=== PATIENT | male | born 1960 | race Caucasian/White ===

== ENCOUNTER 2016-07-28 12:39 | Inpatient (IN) | payer OTHER ==
[~2016-07-28] VITALS: Ht 180.3 cm; Wt 90.0 kg
[~2016-07-28 12:39] MED LIST: ATOR80TA41 PO; BAYE325T3 PO; CLOP75 PO; ISOS60 PO; LACTATED RINGER'S 1000 ML INJ 1,000 ML IV ONE; LISI5 PO; METO25 PO; NITR.4 PO; ONDANSETRON HCL 4 MG/2 ML VIAL IV PUSH ONE; PARO40TA PO; PROPOFOL 200 MG/20 ML AMP IV ONE
[2016-07-28 12:43] VITALS: BP 177/87; PULSE 84; RESP 20; TEMP 98; O2SAT 95
[2016-07-28] MEDS ORDERED: ASPI81CH CHEW (12:57)
[2016-07-28] MEDS ORDERED: CLINDAMYCIN INJ 900 MG in SODIUM CHLORIDE 0.9% INJ 100 ML IV ONE (13:30)
[2016-07-28] MEDS ORDERED: TETANUS/DIPHTHERIA TOXOID ADULT 0.5 ML VIAL IM ONE (13:30)
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
[2016-07-28 14:05] LABS: AUTOMATED NEUTROPHIL # 9.1 TH/MM3 (1.8-7.7); BASOPHIL # 0.1 TH/MM3 (0-0.2); BASOPHIL % 0.9 % (0.0-2.0); EOSINOPHIL # 0.2 TH/MM3 (0-0.4); EOSINOPHIL % 1.6 % (0.0-4.0); HEMO FLAGS DIFF FINAL; MEAN CELL VOLUME 86.2 FL (80.0-100.0); MEAN CORPUSCULAR HEMOGLOBIN 29.5 PG (27.0-34.0); MEAN CORPUSCULAR HGB CONC 34.2 % (32.0-36.0); MONO % 9.4 % (0.0-8.0); NEUT % 72.1 % (16.0-70.0); PLATELET COUNT 191 TH/MM3 (150-450); RED BLOOD COUNT 5.46 MIL/MM3 (4.50-5.90); RED CELL DISTRIBUTION WIDTH 13.8 % (11.6-17.2); WHITE BLOOD COUNT 12.7 TH/MM3 (4.0-11.0)
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
[2016-07-28 14:20] LABS: BICARBONATE 21.4 MEQ/L (21.0-32.0); POTASSIUM 3.9 MEQ/L (3.5-5.1)
[2016-07-28] MEDS ORDERED: BUPIVACAINE HCL PF 0.5% 30 ML VIAL ONE (15:35)
[2016-07-28] MEDS ORDERED: LIDOCAINE HCL 1% 50 ML VIAL ONE (15:36)
[2016-07-28] MEDS ORDERED: BACITRACIN TOP OINT 15 GM TUBE ONE (15:36)
[2016-07-28] MEDS ORDERED: LIDOCAINE HCL 2% 50 ML VIAL ONE (15:51)
[2016-07-28] MEDS ORDERED: MORPHINE SULFATE 4 MG/ML INJ IV PUSH ONE (16:00)
[2016-07-28] MEDS ORDERED: methylPREDNISolone SOD SUCC 125 MG/2 ML VIAL ONE (16:18)
[2016-07-28] MEDS ORDERED: NEOMYCIN/POLYMYXIN 1 ML G.U. IRRIGANT IR ONE (16:56)
[2016-07-28] MEDS ORDERED: MIDAZOLAM HCL 2 MG/2 ML VIAL ONE (18:03)
[2016-07-28] MEDS ORDERED: fentaNYL CITRATE 250 MCG/5 ML AMP ONE (18:04)
--- NOTE | 2016-07-28 18:20 | PD.ORT.PN ---
Subjective Subjective Remarks pain controlled Objective Vitals Vital Signs Date Time Temp Pulse Resp B/P Pulse Ox O2 Delivery O2 Flow Rate FiO2 07/28/16 17:55 97.4 96 15 156/86 98 Simple Mask 5 07/28/16 12:43 98.0 84 20 177/87 95 Room Air I/O 07/27/16 07/27/16 07/27/16 07/28/16 07/28/16 07/28/16 07:00 15:00 23:00 07:00 15:00 23:00 Intake Total 1000 ml Output Total 5 ml Balance 995 ml Intake Other 1000 ml Output Estimated Blood Loss 5 ml Result Diagram: 07/28/16 1350 07/28/16 1350 Imaging Last 24 hours Impressions Hand X-Ray 07/28/16 0000 Signed Impressions: Service Date/Time: Thursday, July 28, 2016 13:43 - CONCLUSION: No acute disease. Julio Rodrigues MD Objective Remarks dressing in place, <2 sec capillary refill, sitlt m/u/r, able to wiggle fingers Assessment & Plan Assessment and Plan POD0 s/p I&D right middle finger flexor tendon sheath -Elevate hand, ROM fingers -Follow cultures, Ab per ID -follow in clinic this week -mild amount of purulence in flexor tendon sheath Lata Franklin MD Jul 28, 2016 18:20
[2016-07-28] MEDS ORDERED: DO NOT ADM ANY ANTICOAGULANT DRUGS XX PRN (18:45)
[2016-07-28 20:00] VITALS: BP 136/85; PULSE 95; RESP 17; TEMP 96.2; O2SAT 95
[2016-07-28] MEDS ORDERED: ACETAMINOPHEN/HYDROcodone 325 MG/7.5 MG TAB PO PRN (20:00)
[2016-07-28] MEDS ORDERED: Vancomycin Consult Pharmacy 1 EA OTHER SCH (20:00)
[2016-07-28] MEDS ORDERED: MORPHINE SULFATE 4 MG/ML INJ IV PUSH PRN (20:00)
--- NOTE | 2016-07-28 20:07 | HHI.HP ---
[facility] Primary Care Physician Admission Diagnosis right hand infection Diagnoses: Travel History International Travel<30 Days: No Contact w/Intl Traveler <30 Da: No Traveled to Known Affected Are: No Past Family Social History Allergies: Coded Allergies: No Known Allergies (Verified , 07/28/16) Physical Exam Vital Signs Vital Signs Date Time Temp Pulse Resp B/P Pulse Ox O2 Delivery O2 Flow Rate FiO2 07/28/16 18:15 92 14 152/83 97 Room Air 07/28/16 18:00 95 16 148/82 96 Room Air 07/28/16 17:55 97.4 96 15 156/86 98 Simple Mask 5 07/28/16 12:43 98.0 84 20 177/87 95 Room Air Physical Exam GENERAL: This is a well-nourished, well-developed patient, in no apparent distress. SKIN: No rashes, ecchymoses or lesions. Cool and dry. HEAD: Atraumatic. Normocephalic. No temporal or scalp tenderness. EYES: Pupils equal round and reactive. Extraocular motions intact. No scleral icterus. No injection or drainage. ENT: Nose without bleeding, purulent drainage or septal hematoma. Throat without erythema, tonsillar hypertrophy or exudate. Uvula midline. Airway patent. NECK: Trachea midline. No JVD or lymphadenopathy. Supple, nontender, no meningeal signs. CARDIOVASCULAR: Regular rate and rhythm without murmurs, gallops, or rubs. RESPIRATORY: Clear to auscultation. Breath sounds equal bilaterally. No wheezes , rales, or rhonchi. GASTROINTESTINAL: Abdomen soft, non-tender, nondistended. No hepato-splenomegaly , or palpable masses. No guarding. MUSCULOSKELETAL: Extremities without clubbing, cyanosis, or edema. No joint tenderness, effusion, or edema noted. No calf tenderness. Negative Homans sign bilaterally. NEUROLOGICAL: Awake and alert. Cranial nerves II through XII intact. Motor and sensory grossly within normal limits. Five out of 5 muscle strength in all muscle groups. Normal speech. Laboratory Laboratory Tests Test 07/28/16 13:50 White Blood Count 12.7 Red Blood Count 5.46 Hemoglobin 16.1 Hematocrit 47.0 Mean Corpuscular Volume 86.2 Mean Corpuscular Hemoglobin 29.5 Mean Corpuscular Hemoglobin 34.2 Concent Red Cell Distribution Width 13.8 Platelet Count 191 Mean Platelet Volume 9.7 Neutrophils (%) (Auto) 72.1 Lymphocytes (%) (Auto) 16.0 Monocytes (%) (Auto) 9.4 Eosinophils (%) (Auto) 1.6 Basophils (%) (Auto) 0.9 Neutrophils # (Auto) 9.1 Lymphocytes # (Auto) 2.0 Monocytes # (Auto) 1.2 Eosinophils # (Auto) 0.2 Basophils # (Auto) 0.1 CBC Comment DIFF FINAL Differential Comment Sodium Level 137 Potassium Level 3.9 Chloride Level 104 Carbon Dioxide Level 21.4 Anion Gap 12 Blood Urea Nitrogen 16 Creatinine 0.96 Estimat Glomerular Filtration 81 Rate Random Glucose 130 Calcium Level 8.6 Date/Time Procedure Status Source Growth 07/28/16 16:59 Gram Stain Received Abscess Finger Pending 07/28/16 16:59 Wound Culture Received Abscess Finger Pending 07/28/16 16:59 Fungal Smear Received Abscess Finger Pending 07/28/16 16:59 Fungal Culture Received Abscess Finger Pending 07/28/16 16:59 Acid Fast Stain Received Abscess Finger Pending 07/28/16 16:59 Mycobacterial Culture Received Abscess Finger Pending 07/28/16 13:50 Aerobic Blood Culture Received Blood Peripheral Pending 07/28/16 13:50 Anaerobic Blood Culture Received Blood Peripheral Pending Result Diagram: 07/28/16 1350 07/28/16 1350 Heidi Jang DO Jul 28, 2016 8:07 pm
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
[2016-07-28] MEDS ORDERED: PILL SPLITTER OTHER PRN (20:45)
[2016-07-28] MEDS ORDERED: VANCOMYCIN INJ 1,250 MG in SODIUM CHLOR 0.9% 250 ML INJ 250 ML IV ONE (21:00)
[2016-07-28] MEDS: ATORVASTATIN 80 MG TAB PO SCH (21:53)
[2016-07-28] MEDS: LISINOPRIL 5 MG TAB PO SCH (21:53)
[2016-07-28] MEDS: CIPROFLOXACIN 500 MG TAB PO SCH (21:53)
[2016-07-28] MEDS: METOPROLOL TARTRATE 25 MG TAB PO SCH (21:54)
[2016-07-28] MEDS: ACETAMINOPHEN 325 MG TAB PO PRN (22:12)
[2016-07-28 22:23] VITALS: O2SAT 95
[2016-07-29] VITALS (7 sets, daily range): BP systolic 101–141; BP diastolic 57–75; PULSE 64–86; RESP 16–18; TEMP 96.8–98.5; O2SAT 93–97
[2016-07-29] MEDS: ISOSORBIDE MONONITRATE 60 MG TAB PO SCH (05:36)
[2016-07-29] MEDS ORDERED: PLAV75TA29 PO (07:15)
[2016-07-29] MEDS ORDERED: PAXI40TA PO (07:15)
[2016-07-29] MEDS ORDERED: METO25TA3 PO (07:15)
[2016-07-29] MEDS ORDERED: LISI-519 PO (07:15)
[2016-07-29] MEDS ORDERED: ISOS60TA PO (07:15)
[2016-07-29] MEDS ORDERED: NITR1SUB3 SL (07:15)
[2016-07-29] MEDS ORDERED: ATOR1TAB18 PO (07:15)
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
[2016-07-29] MEDS: VANCOMYCIN INJ 1,250 MG in SODIUM CHLOR 0.9% 250 ML INJ 250 ML IV SCH ×2 (08:39→20:10)
[2016-07-29] MEDS: ASPIRIN EC 325 MG TABEC PO SCH (08:39)
[2016-07-29] MEDS: CIPROFLOXACIN 500 MG TAB PO SCH ×2 (08:39→20:10)
[2016-07-29] MEDS: METOPROLOL TARTRATE 25 MG TAB PO SCH ×2 (08:39→20:10)
[2016-07-29] MEDS: CLOPIDOGREL 75 MG TAB PO SCH (08:39)
[2016-07-29] MEDS: LISINOPRIL 5 MG TAB PO SCH ×2 (08:39→20:10)
[2016-07-29] MEDS ORDERED: INFLUENZA VIRUS VACCINE (QUADRIVALENT) 0.5 ML SYR IM ONE (09:00)
[2016-07-29] MEDS ORDERED: PNEUMOCOCCAL POLYVALENT INJ 25 MCG/0.5 ML SYR IM ONE (09:00)
--- NOTE | 2016-07-29 13:47 | PD.CONS ---
History of Present Illness Service Infectious disease Consult Requested By Dr. Connor Franklin Reason for Consult Evaluate patient with flexor tenosynovitis Primary Care Physician No Primary Care Physician Diagnoses: History of Present Illness Patient seen and examined. Records reviewed. Patient is a 56-year-old male admitted to the hospital for evaluation swelling, redness, and pain R hand. 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 The following day, he felt some numbness on his right hand, but he did not see any redness or swelling. On the day of admission, he started having pain, and redness on his hand. It progressively worsened and went up his wrist area, so he presented to the hospital for further evaluation and treatment. He felt feverish but he did not take his temperature. About a week prior to admission he has had problem with some sore throat, and some congestion as well as coughing. He was bringing up some yellowish phlegm, and symptoms are improving. He did not have any shortness of breath or any chest pain. There was no fever or chills associated with it. His respiratory symptoms are currently improving since his been in the hospital. Patient denies any GI or any urinary complaints. Since admission he has not been febrile. His initial WBC is 12,000. Patient was seen by hand surgery, and had debridement yesterday. Cultures are still pending. Hand surgery has requested infectious disease consultation for further evaluation and treatment. Review of Systems Constitutional: COMPLAINS OF: Fever, Chills, DENIES: Night Sweats Eyes: DENIES: Eye pain Ears, nose, mouth, throat: COMPLAINS OF: Throat pain, DENIES: Nasal discharge , Oral lesions, Toothache Respiratory: COMPLAINS OF: Cough, Sputum production, DENIES: Hemoptysis, Shortness of breath Cardiovascular: DENIES: Chest pain, Palpitations, Syncope Gastrointestinal: DENIES: Abdominal pain, Diarrhea, Nausea, Vomiting Genitourinary: DENIES: Hematuria, Dysuria Musculoskeletal: COMPLAINS OF: Joint pain, Joint Swelling Integumentary: DENIES: Rash Hematologic/lymphatic: DENIES: Lymphadenopathy Immunologic/allergic: DENIES: Urticaria Neurologic: DENIES: Headache Psychiatric: DENIES: Anxiety Past Family Social History Allergies: Coded Allergies: No Known Allergies (Verified , 07/28/16) Past Medical History CAD s/p stent placement. Hypertension Hyperlipidemia Past Surgical History Stent placement for CAD Active Ordered Medications Tylenol [place] Aspirin Lipitor Cipro Plavix Imdur Prinivil Lopressor Morphine Vancomycin Social History Smokes 10 cig a day. Drinks 4 beers per week. No illicit drug use Physical Exam Vital Signs Vital Signs Date Time Temp Pulse Resp B/P Pulse Ox O2 Delivery O2 Flow Rate FiO2 07/29/16 12:00 97.2 73 17 101/57 96 07/29/16 08:50 96 21 07/29/16 08:00 96.8 67 18 116/66 93 07/29/16 04:00 97.3 64 17 122/62 94 07/29/16 00:00 97.9 75 17 141/75 94 07/28/16 22:23 95 21 07/28/16 20:00 96.2 95 17 136/85 95 07/28/16 18:15 92 14 152/83 97 Room Air 07/28/16 18:00 95 16 148/82 96 Room Air 07/28/16 17:55 97.4 96 15 156/86 98 Simple Mask 5 Physical Exam GENERAL: This is a well-nourished, well-developed male, awake and alert, in no apparent distress. SKIN: Warm and dry, no generalized rash or ecchymosis. HEAD: Atraumatic. Normocephalic. No temporal or scalp tenderness. EYES: Ong conjunctivae, no petechia or hemorrhage. Pupils equal round and reactive. Extraocular motions intact. No scleral icterus. No injection or drainage. ENT: Nose without bleeding, or purulent drainage. Moist oral mucosa, poor dentition. Throat without erythema, or exudate. Uvula midline. Airway patent. NECK: Trachea midline. No JVD or lymphadenopathy. Supple, nontender, no meningeal signs. CARDIOVASCULAR: Regular rate and rhythm without murmurs, gallops, or rubs. RESPIRATORY: Clear to auscultation. Breath sounds equal bilaterally. No wheezes , rales, or rhonchi. GASTROINTESTINAL: Abdomen soft, globular, non-tender, nondistended. No hepato- splenomegaly, or palpable masses. No guarding. MUSCULOSKELETAL: Extremities without clubbing, cyanosis, or edema in BLE. Has intact dry dressing to his R hand, moving all fingers well, no lymphangitis seen in the forearm or upper arm. No calf tenderness. Negative Homans sign bilaterally. NEUROLOGICAL: Awake and alert. Cranial nerves II through XII intact. Motor and sensory grossly within normal limits. Five out of 5 muscle strength in all muscle groups. Normal speech. PSYCH: Normal affect, calm and cooperative. LINE: PIV with no evidence of infection Laboratory Laboratory Tests Test 07/28/16 13:50 White Blood Count 12.7 Red Blood Count 5.46 Hemoglobin 16.1 Hematocrit 47.0 Mean Corpuscular Volume 86.2 Mean Corpuscular Hemoglobin 29.5 Mean Corpuscular Hemoglobin 34.2 Concent Red Cell Distribution Width 13.8 Platelet Count 191 Mean Platelet Volume 9.7 Neutrophils (%) (Auto) 72.1 Lymphocytes (%) (Auto) 16.0 Monocytes (%) (Auto) 9.4 Eosinophils (%) (Auto) 1.6 Basophils (%) (Auto) 0.9 Neutrophils # (Auto) 9.1 Lymphocytes # (Auto) 2.0 Monocytes # (Auto) 1.2 Eosinophils # (Auto) 0.2 Basophils # (Auto) 0.1 CBC Comment DIFF FINAL Differential Comment Sodium Level 137 Potassium Level 3.9 Chloride Level 104 Carbon Dioxide Level 21.4 Anion Gap 12 Blood Urea Nitrogen 16 Creatinine 0.96 Estimat Glomerular Filtration 81 Rate Random Glucose 130 Calcium Level 8.6 Date/Time Procedure Status Source Growth 07/28/16 16:59 Gram Stain - Final Resulted Abscess Finger 07/28/16 16:59 Wound Culture - Preliminary Resulted Abscess Finger 07/28/16 16:59 Fungal Smear - Final Resulted Abscess Finger NO FUNGAL ELEMENTS SEEN. 07/28/16 16:59 Fungal Culture Resulted Abscess Finger Pending 07/28/16 16:59 Acid Fast Stain Received Abscess Finger Pending 07/28/16 16:59 Mycobacterial Culture Received Abscess Finger Pending 07/28/16 13:50 Aerobic Blood Culture - Preliminary Resulted Blood Peripheral NO GROWTH IN 1 DAY 07/28/16 13:50 Anaerobic Blood Culture - Preliminary Resulted Blood Peripheral NO GROWTH IN 1 DAY Result Diagram: 07/28/16 1350 07/28/16 1350 Imaging RADIOLOGY STUDIES/FILMS REVIEWED Hand X-Ray 07/28/16 0000 Signed Impressions: Service Date/Time: Thursday, July 28, 2016 13:43 - CONCLUSION: No acute disease. Julio Rodrigues MD Assessment and Plan Assessment and Plan IMPRESSION Infection R hand, with flexor tenosynovitis, S/P debridement Bronchitis Smoker RECOMMENDATION Continue IV vancomycin Continue Cipro Follow cultures and adjust antibiotics accordingly Monitor clinically I will determine choice and course of antibiotics once cultures are available Thank you for this consultation Discussed Condition With Explained plan to the patient and answered all his questions Stacy Dillard MD Jul 29, 2016 13:47
--- NOTE | 2016-07-29 14:16 | MP ---
cc: LATA FRANKLIN DATE OF SURGERY: 07/28/2016 PREOPERATIVE DIAGNOSIS Infected flexor tendon sheath, right middle finger. POSTOPERATIVE DIAGNOSIS Infected flexor tendon sheath, right middle finger. PROCEDURE Incision and drainage flexor tendon sheath, right middle finger. SURGEON Dr. Lata Franklin ANESTHESIA General and local. TOURNIQUET TIME 26 minutes at 250 mmHg. SPECIMEN Culture. INDICATION FOR PROCEDURE Rigoberto Lewis is a 56-year-old male with a past medical history significant for cardiac disease, who states that he accidentally stabbed himself on the volar aspect of the right middle finger with his fishing knife 2 days prior to presentation and now has significant pain and swelling over the right hand. I recommended emergent incision and drainage of the flexor tendon sheath and admission for IV antibiotics, and he elected to proceed. The risks were explained to include but not limited to wound complications, infection, stiffness, pain, paresthesias, need for additional surgeries, and he elected to proceed. DESCRIPTION OF PROCEDURE The patient was identified in the preoperative holding area. The correct extremity was marked. The patient was taken to the operating room where anesthesia was induced. The right upper extremity was prepped and draped in normal sterile fashion. Tourniquet was inflated to 250 mmHg for 26 minutes. Approximately 10 cc of 2% lidocaine without epinephrine was used to perform local anesthesia over the finger. An oblique incision was made over the level of the A1 ambrocio where the stab occurred. Upon making the incision there was a mild amount of purulence. This was sent for culture. The wound was then irrigated with 3 liters of antibiotic saline including an Angiocath up and down the flexor tendon sheath. The patient also had a small open area of the small finger which was irrigated and sutured. The wound was closed with 4-0 chromic. The patient was placed into a soft dressing and awoken from anesthesia without any complications. He is to remain admitted for IV antibiotics following the cultures, and I will see him in the office. MD PAULINE Cody/MOISES /6:15 PM /2:[address] [facility]
--- NOTE | 2016-07-29 16:30 | HHI.PR ---
Subjective Remarks Follow up for right hand infection. Patient is doing well. Denies any chest pain , SOB, fever, chills. He is having some difficulty using his hands. However, he is able to eat by himself. Remains in good spirit. Objective Vitals Vital Signs Date Time Temp Pulse Resp B/P Pulse Ox O2 Delivery O2 Flow Rate FiO2 07/29/16 12:00 97.2 73 17 101/57 96 07/29/16 08:50 96 21 07/29/16 08:00 96.8 67 18 116/66 93 07/29/16 04:00 97.3 64 17 122/62 94 07/29/16 00:00 97.9 75 17 141/75 94 07/28/16 22:23 95 21 07/28/16 20:00 96.2 95 17 136/85 95 07/28/16 18:15 92 14 152/83 97 Room Air 07/28/16 18:00 95 16 148/82 96 Room Air 07/28/16 17:55 97.4 96 15 156/86 98 Simple Mask 5 I/O 07/28/16 07/28/16 07/28/16 07/29/16 07/29/16 07/29/16 07:00 15:00 23:00 07:00 15:00 23:00 Intake Total 1240 ml 490 ml 500 ml Output Total 305 ml 700 ml 450 ml Balance 935 ml -210 ml 50 ml Intake Oral 240 ml 240 ml 500 ml IV Total 0 ml 250 ml Other 1000 ml Output Urine Total 300 ml 700 ml 450 ml Estimated Blood Loss 5 ml # Bowel Movements 0 Result Diagram: 07/28/16 1350 07/28/16 1350 Imaging Last Impressions Hand X-Ray 07/28/16 0000 Signed Impressions: Service Date/Time: Thursday, July 28, 2016 13:43 - CONCLUSION: No acute disease. Julio Rodrigues MD Objective Remarks GENERAL: AOX3, NAD. SKIN: Warm and dry. HEAD: Normocephalic. EYES: No scleral icterus. No injection or drainage. NECK: Supple, trachea midline. No JVD or lymphadenopathy. CARDIOVASCULAR: Regular rate and rhythm without murmurs, gallops, or rubs. RESPIRATORY: Breath sounds equal bilaterally. No accessory muscle use. GASTROINTESTINAL: Abdomen soft, non-tender, nondistended. MUSCULOSKELETAL: No cyanosis. Right hand s/p I&D, dressing on. BACK: Nontender without obvious deformity. No CVA tenderness. Procedures 07/28/2016 Incision and drainage flexor tendon sheath, right middle finger. A/P Problem List: (1) Sepsis ICD Code: A41.9 Status: Acute (2) Tenosynovitis of hand ICD Code: M65.9 Status: Acute (3) CAD (coronary artery disease) ICD Code: I25.10 Status: Acute (4) HTN (hypertension) ICD Code: I10 Status: Chronic Assessment and Plan Mr. Lewis is a pleasant 56 year old male with a history of CAD s/p stents who presented to the ED on 07/28/2016 due to accidental right hand injury with a knife and subsequent rapid development of erythema, pain and swelling of the right hand. Patient underwent surgical I&D on 07/28/[address] Lata Franklin. - Sepsis (Tachycardia, WBC > 12K, right hand infection). - Right hand tenosynovitis - Patient received clindamycin in the ED. - Right hand x-ray reviewed by me on 07/28/2016 - no acute disease noted on Xray. Patient's picture prior to surgery reviewed. - s/p I&D right middle finger flexor tendon sheath - Follow culture results. - Continue Vancomycin IV and Cipro 500mg PO BID. ID is following. - Follow C&S - CAD s/p stents - Hypertension - Hyperlipidemia - Continue Aspirin 325mg Qday, Imdur 60mg Qday, Plavix 75mg Qday, Lisinopril 5 mg BID, Lipitor 80mg QHS - Continue Metoprolol 12.5mg Qday. - Tobacco abuse - Alcohol abuse - Extensively counselled patient regarding his alcohol and tobacco abuse especially give his history of CAD. Full code. SCDs, Ambulation. Heidi Jang DO Jul 29, 2016 16:30
[2016-07-29] MEDS: ATORVASTATIN 80 MG TAB PO SCH (20:10)
[2016-07-30] VITALS: BP 143/55; PULSE 66; RESP 20; TEMP 98.7; O2SAT 96
[2016-07-30] MEDS: ISOSORBIDE MONONITRATE 60 MG TAB PO SCH (06:11)
[2016-07-30 08:00] VITALS: BP 119/66; PULSE 71; RESP 18; TEMP 97.4; O2SAT 98
[2016-07-30] MEDS: CLOPIDOGREL 75 MG TAB PO SCH (08:36)
[2016-07-30] MEDS: LISINOPRIL 5 MG TAB PO SCH ×2 (08:36→21:48)
[2016-07-30] MEDS: METOPROLOL TARTRATE 25 MG TAB PO SCH ×2 (08:36→21:48)
[2016-07-30] MEDS: ASPIRIN EC 325 MG TABEC PO SCH (08:36)
[2016-07-30] MEDS: CIPROFLOXACIN 500 MG TAB PO SCH ×2 (08:36→21:48)
[2016-07-30] MEDS ORDERED: PHARMACY ORDERED LAB XX ONE (08:45)
--- NOTE | 2016-07-30 10:24 | HHI.PR ---
Subjective Remarks Follow up for right hand infection. Mr. Lewis is doing well. No acute concerns. No fever, chills. Tolerating diet well. Objective Vitals Vital Signs Date Time Temp Pulse Resp B/P Pulse Ox O2 Delivery O2 Flow Rate FiO2 07/30/16 08:00 97.4 71 18 119/66 98 07/30/16 00:00 98.7 66 20 143/55 96 07/29/16 20:00 98.5 86 18 112/70 97 07/29/16 16:00 97.8 71 16 101/61 96 07/29/16 12:00 97.2 73 17 101/57 96 I/O 07/29/16 07/29/16 07/29/16 07/30/16 07/30/16 07/30/16 07:00 15:00 23:00 07:00 15:00 23:00 Intake Total 490 ml 500 ml 250 ml 240 ml 240 ml Output Total 700 ml 450 ml 250 ml Balance -210 ml 50 ml 250 ml -10 ml 240 ml Intake Oral 240 ml 500 ml 240 ml 240 ml IV Total 250 ml 250 ml Output Urine Total 700 ml 450 ml 250 ml # Bowel Movements 0 0 Result Diagram: 07/28/16 1350 07/30/16 0533 Imaging Last Impressions Hand X-Ray 07/28/16 0000 Signed Impressions: Service Date/Time: Thursday, July 28, 2016 13:43 - CONCLUSION: No acute disease. Julio Rodrigues MD Objective Remarks GENERAL: AOX3, NAD. SKIN: Warm and dry. HEAD: Normocephalic. EYES: No scleral icterus. No injection or drainage. NECK: Supple, trachea midline. No JVD or lymphadenopathy. CARDIOVASCULAR: Regular rate and rhythm without murmurs, gallops, or rubs. RESPIRATORY: Breath sounds equal bilaterally. No accessory muscle use. GASTROINTESTINAL: Abdomen soft, non-tender, nondistended. MUSCULOSKELETAL: No cyanosis. Right hand s/p I&D, dressing on. BACK: Nontender without obvious deformity. No CVA tenderness. Procedures 07/28/2016 Incision and drainage flexor tendon sheath, right middle finger. A/P Problem List: (1) Sepsis ICD Code: A41.9 Status: Acute (2) Tenosynovitis of hand ICD Code: M65.9 Status: Acute (3) CAD (coronary artery disease) ICD Code: I25.10 Status: Acute (4) HTN (hypertension) ICD Code: I10 Status: Chronic Assessment and Plan Mr. Lewis is a pleasant 56 year old male with a history of CAD s/p stents who presented to the ED on 07/28/2016 due to accidental right hand injury with a knife and subsequent rapid development of erythema, pain and swelling of the right hand. Patient underwent surgical I&D on 07/28/[address] Lata Franklin. - Sepsis (Tachycardia, WBC > 12K, right hand infection). - Right hand tenosynovitis - Patient received clindamycin in the ED. - Right hand x-ray reviewed by me on 07/28/2016 - no acute disease noted on Xray. Patient's picture prior to surgery reviewed. - s/p I&D right middle finger flexor tendon sheath - Follow culture results. - Continue Vancomycin IV and Cipro 500mg PO BID. ID is following. - Wound culture growing Group B strep, Coag negative staph. Sensitivity pending. - CAD s/p stents - Hypertension - Hyperlipidemia - Continue Aspirin 325mg Qday, Imdur 60mg Qday, Plavix 75mg Qday, Lisinopril 5 mg BID, Lipitor 80mg QHS - Continue Metoprolol 12.5mg Qday. - Tobacco abuse - Alcohol abuse - Extensively counselled patient regarding his alcohol and tobacco abuse especially give his history of CAD. Full code. SCDs, Ambulation. Heidi Jang DO Jul 30, 2016 10:24 am
[2016-07-30 11:23] VITALS: BP 111/58; PULSE 64; RESP 18; TEMP 97.7; O2SAT 96
[2016-07-30] MEDS: VANCOMYCIN INJ 1,250 MG in SODIUM CHLOR 0.9% 250 ML INJ 250 ML IV SCH (12:59)
[2016-07-30 16:00] VITALS: BP 129/75; PULSE 61; RESP 19; TEMP 97.2; O2SAT 97
[2016-07-30 18:36] VITALS: O2SAT 97
[2016-07-30 20:51] VITALS: BP 136/80; PULSE 80; RESP 20; TEMP 97.7; O2SAT 98
[2016-07-30] MEDS: ATORVASTATIN 80 MG TAB PO SCH (21:48)
[2016-07-30] MEDS: ACETAMINOPHEN 325 MG TAB PO PRN (21:48)
[2016-07-30] MEDS: VANCOMYCIN INJ 1,750 MG in SODIUM CHLORID 0.9% 500 ML INJ 500 ML IV SCH (21:49)
[2016-07-31 00:18] VITALS: BP 128/77; PULSE 60; RESP 18; TEMP 97.6; O2SAT 95
[2016-07-31] MEDS: ISOSORBIDE MONONITRATE 60 MG TAB PO SCH (06:00)
[2016-07-31 07:30] VITALS: BP 131/70; PULSE 68; RESP 19; TEMP 96.9; O2SAT 95
[2016-07-31] MEDS: ASPIRIN EC 325 MG TABEC PO SCH (08:08)
[2016-07-31] MEDS: CLOPIDOGREL 75 MG TAB PO SCH (08:09)
[2016-07-31] MEDS: VANCOMYCIN INJ 1,750 MG in SODIUM CHLORID 0.9% 500 ML INJ 500 ML IV SCH (08:09)
[2016-07-31] MEDS: LISINOPRIL 5 MG TAB PO SCH (08:09)
[2016-07-31] MEDS: CIPROFLOXACIN 500 MG TAB PO SCH (08:09)
[2016-07-31] MEDS: METOPROLOL TARTRATE 25 MG TAB PO SCH (08:09)
--- NOTE | 2016-07-31 11:03 | HHI.IDPN ---
Subjective Subjective Remarks Notes reviewed No fever R hand feels better Wound C/S GBS, pneumococcus and Coag Neg Staph Antibiotics Vanco Zosyn Lines PIV Past Medical History Reviewed Allergies: Coded Allergies: No Known Allergies (Verified , 07/28/16) Objective . Vital Signs Date Time Temp Pulse Resp B/P Pulse Ox O2 Delivery O2 Flow Rate FiO2 07/31/16 07:30 96.9 68 19 131/70 95 07/31/16 00:18 97.6 60 18 128/77 95 07/31/16 00:00 18 07/30/16 20:51 97.7 80 20 136/80 98 07/30/16 18:36 97 21 07/30/16 16:00 97.2 61 19 129/75 97 07/30/16 11:23 97.7 64 18 111/58 96 07/30/16 07/30/16 07/31/16 14:59 22:59 06:59 Intake Total 1200 ml 720 ml 1000 ml Output Total 800 ml Balance 400 ml 720 ml 1000 ml Intake Oral 1000 ml 720 ml 480 ml IV Total 200 ml 0 ml 520 ml Output Urine Total 800 ml # Voids 3 3 # Bowel Movements 1 . Laboratory Tests Test 07/30/16 05:33 Creatinine 1.05 MG/DL Estimat Glomerular Filtration 73 ML/MIN Rate Microbiology Date/Time Procedure Status Source Growth 07/28/16 13:30 Aerobic Blood Culture - Preliminary Resulted Blood Peripheral NO GROWTH IN 2 DAYS 07/28/16 13:30 Anaerobic Blood Culture - Preliminary Resulted Blood Peripheral NO GROWTH IN 2 DAYS 07/28/16 13:50 Aerobic Blood Culture - Preliminary Resulted Blood Peripheral NO GROWTH IN 2 DAYS 07/28/16 13:50 Anaerobic Blood Culture - Preliminary Resulted Blood Peripheral NO GROWTH IN 2 DAYS 07/28/16 16:59 Gram Stain - Final Complete Abscess Finger 07/28/16 16:59 Wound Culture - Final Complete Streptococcus Pneumoniae 07/28/16 16:59 Acid Fast Stain - Final Resulted Abscess Finger NO ACID FAST BACILLI SEEN 07/28/16 16:59 Mycobacterial Culture Resulted Abscess Finger Pending 07/28/16 16:59 Fungal Smear - Final Resulted Abscess Finger NO FUNGAL ELEMENTS SEEN. 07/28/16 16:59 Fungal Culture Resulted Abscess Finger Pending 07/28/16 16:59 Gram Stain - Final Complete Abscess Finger 07/28/16 16:59 Wound Culture - Final Complete Group B Beta Strep Staph Sp Coagulase Negative 07/28/16 16:59 Acid Fast Stain - Final Resulted Abscess Finger NO ACID FAST BACILLI SEEN 07/28/16 16:59 Mycobacterial Culture Resulted Abscess Finger Pending 07/28/16 16:59 Fungal Smear - Final Resulted Abscess Finger NO FUNGAL ELEMENTS SEEN. 07/28/16 16:59 Fungal Culture Resulted Abscess Finger Pending Physical Exam GENERAL: Awake and alert, in no apparent distress. SKIN: Warm and dry, no generalized rash or ecchymosis. HEENT: [place] conjunctivae. No scleral icterus. No injection or drainage. Moist oral mucosa, poor dentition. NECK: Trachea midline. No JVD or lymphadenopathy. Supple, nontender, no meningeal signs. CARDIOVASCULAR: Regular rate and rhythm without murmurs, gallops, or rubs. RESPIRATORY: Clear to auscultation. Breath sounds equal bilaterally. No wheezes , rales, or rhonchi. GASTROINTESTINAL: Abdomen soft, globular, non-tender, nondistended. No hepato- splenomegaly, or palpable masses. No guarding. MUSCULOSKELETAL: Extremities without clubbing, cyanosis, or edema in BLE. Has intact dry dressing to his R hand, moving all fingers well, no lymphangitis seen in the forearm or upper arm. No calf tenderness. Negative Homans sign bilaterally. NEUROLOGICAL: Non-focal PSYCH: Normal affect, calm and cooperative. LINE: PIV with no evidence of infection Assessment & Plan Remarks IMPRESSION Infection R hand, with flexor tenosynovitis, S/P debridement Bronchitis Smoker RECOMMENDATION Change to Rocephin - give dose today if to be D/C today Ok to D/C home on Ceftin 500 BID x 14 days Wound care per Hand surgery D/W Stacy Page MD Jul 31, 2016 11:02
[2016-07-31] MEDS ORDERED: CEFT500T3 PO (11:08)
[2016-07-31 11:21] VITALS: BP 142/65; PULSE 69; RESP 18; TEMP 98.7; O2SAT 97
[2016-07-31] MEDS ORDERED: LISI-519 PO (11:54)
[2016-07-31] MEDS ORDERED: NITR1SUB3 SL (11:54)
[2016-07-31] MEDS ORDERED: ISOS60TA PO (11:54)
[2016-07-31] MEDS ORDERED: ATOR1TAB18 PO (11:54)
[2016-07-31] MEDS ORDERED: METO25TA3 PO ×2 (11:54→11:55)
[2016-07-31] MEDS ORDERED: ASPI81CH CHEW (11:54)
[2016-07-31] MEDS ORDERED: PAXI40TA PO (11:54)
[2016-07-31] MEDS ORDERED: PLAV75TA29 PO (11:54)
[2016-07-31] MEDS ORDERED: HYDR-3580 PO (11:57)
[2016-07-31] MEDS ORDERED: cefTRIAXone INJ 2,000 MG in SODIUM CHLORIDE 0.9% INJ 100 ML IV SCH (12:00)
--- NOTE | 2016-07-31 12:00 | HHI.DS ---
Discharge Summary Admission Date Jul 28, 2016 at 8:10 pm Discharge Date: Jul 31, 2016 Admitting Diagnosis right hand infection (1) Sepsis ICD Code: A41.9 Diagnosis: Principal (2) Tenosynovitis of hand ICD Code: M65.9 Diagnosis: Principal (3) CAD (coronary artery disease) ICD Code: I25.10 (4) HTN (hypertension) ICD Code: I10 Procedures 07/28/2016 Incision and drainage flexor tendon sheath, right middle finger. Brief History - From Admission Mr. Lewis is a pleasant 56 year old with a history of CAD s/p stents who presents to the ED on 07/28/2016 due to right hand swelling, redness and pain that started two days prior to this admission. 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 He took the knife out and washed with soap and water. However, he experienced rapid progression of swelling, pain and redness. He had difficulty with range of motion especially third digit. He denies any fever, chills, nausea , vomiting. Denies any chest pain. Denies any changes in bowel or bladder habits. Last tetanus unknown. CBC/BMP: 07/28/16 1350 07/30/16 0533 Significant Findings Laboratory Tests Test 07/28/16 07/30/16 13:50 05:33 White Blood Count 12.7 TH/MM3 (4.0-11.0) Neutrophils (%) (Auto) 72.1 % (16.0-70.0) Monocytes (%) (Auto) 9.4 % (0.0-8.0) Neutrophils # (Auto) 9.1 TH/MM3 (1.8-7.7) Monocytes # (Auto) 1.2 TH/MM3 (0-0.9) Estimat Glomerular Filtration 81 ML/MIN (>89) 73 ML/MIN (>89) Rate Random Glucose 130 MG/DL (74-106) Imaging Last Impressions Hand X-Ray 07/28/16 0000 Signed Impressions: Service Date/Time: Thursday, July 28, 2016 13:43 - CONCLUSION: No acute disease. Julio Rodrigues MD PE at Discharge GENERAL: AOX3, NAD. SKIN: Warm and dry. HEAD: Normocephalic. EYES: No scleral icterus. No injection or drainage. NECK: Supple, trachea midline. No JVD or lymphadenopathy. CARDIOVASCULAR: Regular rate and rhythm without murmurs, gallops, or rubs. RESPIRATORY: Breath sounds equal bilaterally. No accessory muscle use. GASTROINTESTINAL: Abdomen soft, non-tender, nondistended. MUSCULOSKELETAL: No cyanosis. Right hand s/p I&D, dressing on. BACK: Nontender without obvious deformity. No CVA tenderness. Pt update on day of discharge Patient is doing well. No acute concerns. ID recommended cefuroxime for 14 days. Hospital Course Mr. Lewis is a pleasant 56 year old male with a history of CAD s/p stents who presented to the ED on 07/28/2016 due to accidental right hand injury with a knife and subsequent rapid development of erythema, pain and swelling of the right hand. Patient underwent surgical I&D on 07/28/[address] Lata Franklin. - Sepsis (Tachycardia, WBC > 12K, right hand infection). - Right hand tenosynovitis - Patient received clindamycin in the ED. - Right hand x-ray reviewed by me on 07/28/2016 - no acute disease noted on Xray. Patient's picture prior to surgery reviewed. - s/p I&D right middle finger flexor tendon sheath - received Vancomycin IV and Cipro 500mg PO BID. ID is following. - Wound culture growing Group B strep, Coag negative staph. - ID cleared for discharge. ID recommended Cefuroxime for 14 days. - Patient will see Dr. Franklin tomorrow 08/01/2016. - CAD s/p stents - Hypertension - Hyperlipidemia - Continue Aspirin 325mg Qday, Imdur 60mg Qday, Plavix 75mg Qday, Lisinopril 5 mg BID, Lipitor 80mg QHS - Continue Metoprolol 12.5mg Qday. - 90 day supply given for heart medications. However, patient was strongly encouraged to obtain PCP and follow up with PCP within 1-2 weeks. - Tobacco abuse - Alcohol abuse - Extensively counselled patient regarding his alcohol and tobacco abuse especially give his history of CAD. Full code. SCDs, Ambulation. Pt Condition on Discharge: Good Discharge Disposition: Discharge Home Discharge Time: > 30 minutes Discharge Instructions DIET: Follow Instructions for: Heart Healthy Diet Activities you can perform: Regular-No Restrictions Follow up Referrals: Hand Surgery - 2-3 Days with Lata Franklin MD PCP Follow-up - 1 Week New Medications: Cefuroxime (Ceftin) 500 Mg Tab 500 MG PO BID Infection Days 14 Ref 0 TAB Hydrocodone-Acetaminophen (Hydrocodone-Acetaminophen) 7.5-325 mg Tab 1 TAB PO Q6H PRN Pain #20 TAB Metoprolol Tartrate (Metoprolol Tartrate) 25 Mg Tab 12.5 MG PO Q12HR Heart Days 90 TAB Continued Medications: Aspirin (Aspirin) 81 Mg Chew 81 MG CHEW DAILY Heart Days 90 Ref 0 TAB (This prescription has been renewed) Atorvastatin (Atorvastatin) 80 Mg Tab 80 MG PO HS Cholesterol Management #90 Ref 0 TAB (This prescription has been renewed) Clopidogrel (Plavix) 75 Mg Tab 75 MG PO DAILY Blood Clot Prevention #90 Ref 0 TAB (This prescription has been renewed) Isosorbide Mononitrate ER (Isosorbide Mononitrate ER) 60 Mg Tab 60 MG PO DAILY Prevent Chest Pain #90 Ref 0 TAB (This prescription has been renewed) Lisinopril (Lisinopril) 5 Mg Tab 5 MG PO DAILY Blood Pressure Management #90 Ref 0 TAB (This prescription has been renewed) Nitroglycerin SL (Nitroglycerin SL) 0.4 Mg Subl 0.4 MG SL DIRECTED ONE TABLET UNDER THE TONGUE NEEDED FOR CHEST PAIN, MAY REPEAT EVERY FIVE MINUTES FOR A TOTAL OF 3 DOSES OR CALL 911 IF NO RELIEF PRN ANGINA #100 Ref 0 TAB.SL (This prescription has been renewed) Paroxetine (Paxil) 40 Mg Tab 40 MG PO DAILY Anxiety #30 Ref 0 TAB (This prescription has been renewed) Heidi Jang DO Jul 31, 2016 12:00 pm
[2016-08-01] MEDS ORDERED: PHARMACY ORDERED LAB XX ONE (08:45)
== END 2016-07-31 13:37 | disposition home or self-care (01) | DRG 855 ==
LOC: NEPB 12:39 → NEDA 16:51 → N07A 18:54 → OBSVTOIN 20:10 → N07B 07-30 00:57
PROVIDERS: ADMIT Hospitalist; ATTEND Hospitalist
PROC: 0L970ZZ Drainage of Right Hand Tendon, Open Approach (ICD-10-PCS; principal; 2016-07-28 16:24)
DX: A41.9 Sepsis, unspecified organism (principal); I10 Essential (primary) hypertension; S61.232A Puncture wound without foreign body of right middle finger without damage to nail, initial encounter; M65.141 Other infective (teno)synovitis, right hand; J40 Bronchitis, not specified as acute or chronic; I25.10 Atherosclerotic heart disease of native coronary artery without angina pectoris; E78.5 Hyperlipidemia, unspecified; L08.9 Local infection of the skin and subcutaneous tissue, unspecified; E78.00 Pure hypercholesterolemia, unspecified; K21.9 Gastro-esophageal reflux disease without esophagitis; I25.2 Old myocardial infarction; F41.9 Anxiety disorder, unspecified; F10.10 Alcohol abuse, uncomplicated; F17.200 Nicotine dependence, unspecified, uncomplicated; B95.1 Streptococcus, group B, as the cause of diseases classified elsewhere; W26.0XXA Contact with knife, initial encounter; Y93.G9 Activity, other involving cooking and grilling; Z23 Encounter for immunization; Y92.511 Restaurant or cafe as the place of occurrence of the external cause; Z95.5 Presence of coronary angioplasty implant and graft
CPT/HCPCS: 73120; 80048; 80202; 82565; 85025; 87015; 87040; 87070; 87102; 87116; 87184; 87186; 87205; 87206; 90471; 90686; 90714; 90732; 96365; J0696; J2250; J2405; J2930; J3010; J3370; J7040; J7050; J7120; Q2038

== ENCOUNTER 2016-10-07 00:56 | Inpatient (IN) | payer OTHER ==
[2016-10-07] VITALS (18 sets, daily range): BP systolic 95–177; BP diastolic 51–106; PULSE 58–91; RESP 16–20; TEMP 97.8–98.6; O2SAT 95–100
[~2016-10-07] VITALS: Ht 180.3 cm; Wt 87.8 kg
[~2016-10-07 00:56] MED LIST changes: +ASPI81CH CHEW; +ATOR1TAB18 PO; -ATOR80TA41 PO; -BAYE325T3 PO; +CEFT500T3 PO; -CLOP75 PO; +HYDR-3580 PO; -ISOS60 PO; +ISOS60TA PO; -LACTATED RINGER'S 1000 ML INJ 1,000 ML IV ONE; +LISI-519 PO; -LISI5 PO; -METO25 PO; +METO25TA3 PO; -NITR.4 PO; +NITR1SUB3 SL; -ONDANSETRON HCL 4 MG/2 ML VIAL IV PUSH ONE; -PARO40TA PO; +PAXI40TA PO; +PLAV75TA29 PO; -PROPOFOL 200 MG/20 ML AMP IV ONE
[2016-10-07] MEDS ORDERED: NITROGLYCERIN-DEXTROSE INJ 250 ML ONE (01:00)
[2016-10-07] MEDS ORDERED: HEPARIN SODIUM - IV 10,000 UNITS/10 ML VIAL ONE ×2 (01:00→01:38)
[2016-10-07] MEDS ORDERED: NITROGLYCERIN 0.4 MG SL 25 TABS/BTL SL STA (01:02)
[2016-10-07] MEDS ORDERED: ASPIRIN 81 MG CHEW TAB PO STA (01:02)
[2016-10-07] MEDS ORDERED: HEPARIN SODIUM - IV 10,000 UNITS/10 ML VIAL IV STA (01:02)
[2016-10-07] MEDS ORDERED: SODIUM CHLOR 0.9% 1000 ML INJ 1,000 ML IV ONE (01:02)
[2016-10-07 01:13] LABS: BASOPHIL # 0.2 TH/MM3 (0-0.2); BASOPHIL % 1.3 % (0.0-2.0); EOSINOPHIL # 0.1 TH/MM3 (0-0.4); EOSINOPHIL % 0.7 % (0.0-4.0); HEMATOCRIT 48.9 % (39.0-51.0); HEMO FLAGS DIFF FINAL; LYMPH % 12.4 % (9.0-44.0); LYMPHOCYTE # 1.9 TH/MM3 (1.0-4.8); MEAN CELL VOLUME 85.9 FL (80.0-100.0); MEAN CORPUSCULAR HEMOGLOBIN 29.8 PG (27.0-34.0); MEAN CORPUSCULAR HGB CONC 34.7 % (32.0-36.0); MONO % 6.5 % (0.0-8.0); NEUT % 79.1 % (16.0-70.0); PLATELET COUNT 202 TH/MM3 (150-450); RED BLOOD COUNT 5.69 MIL/MM3 (4.50-5.90); RED CELL DISTRIBUTION WIDTH 13.5 % (11.6-17.2); WHITE BLOOD COUNT 15.1 TH/MM3 (4.0-11.0)
[2016-10-07 01:14] LABS: I-STAT POTASSIUM 3.9 MMOL/L (3.5-4.9); I-STAT SODIUM 136 MMOL/L (138-146)
[2016-10-07] MEDS ORDERED: SODIUM CHLORIDE 0.9% FLUSH 5 ML FLUSH IVF PRN ×2 (01:15→03:15)
[2016-10-07] MEDS ORDERED: NITROGLYCERIN-DEXTROSE INJ 250 ML IV SCH (01:15)
[2016-10-07 01:26] LABS: APTT (PATIENT) 27.8 SEC (24.3-30.1); PROTHROMBIN TIME - PATIENT 10.7 SEC (9.8-11.6)
[2016-10-07] MEDS ORDERED: MORPHINE SULFATE 4 MG/ML INJ IV PUSH ONE (01:30)
[2016-10-07 01:31] LABS: CREATINE KINASE 158 U/L (39-308)
[2016-10-07 01:34] LABS: MAGNESIUM 1.9 MG/DL (1.5-2.5)
[2016-10-07] MEDS ORDERED: HEPARIN-NS/PF INJ 500 ML ONE (01:36)
[2016-10-07] MEDS ORDERED: MIDAZOLAM HCL 2 MG/2 ML VIAL ONE (01:37)
--- NOTE | 2016-10-07 01:37 | RADRPT ---
EXAM DATE/TIME: 10/07/2016 00:59 [facility] COMPARISON: CHEST SINGLE AP, April 18, 2016, 7:52. INDICATIONS : Stemi alert. MEDICAL HISTORY : Hypertension. Myocardial infarction. SURGICAL HISTORY : Coronary artery stent. Cardiac catheterization. ENCOUNTER: Initial ACUITY: 1 day PAIN SCORE: 8/10 LOCATION: Bilateral chest FINDINGS: Single AP view of the chest. Subsegmental atelectasis or scarring is again seen in the mid to lower l stephanie zones. The lungs are otherwise clear. Cardiomediastinal silhouette within normal limits. No evide nce of pleural effusion or pneumothorax. CONCLUSION: Scarring or subsegmental atelectasis bilaterally very similar in appearance to e prior study of March 2016. No other acute cardiopulmonary disease identified. Kip Easley MD on October 07, 2016 at 1:34 Board Certified Radiologist. This report was verified electronically.
[2016-10-07] MEDS ORDERED: NITROGLYCERIN INJ 5 ML ONE (01:38)
[2016-10-07 01:43] LABS: CKMB 3.7 NG/ML (0.5-3.6)
[2016-10-07] MEDS ORDERED: VERAPAMIL HCL 5 MG/2 ML VIAL ONE (01:49)
--- NOTE | 2016-10-07 01:55 | PD ---
HPI Chief Complaint: STEMI Alert Time Seen by Provider: 01:02 Travel History International Travel<30 days: No Contact w/Intl Traveler<30days: No Traveled to known affect area: No History of Present Illness HPI So 56-year-old man who presents emergent department of chest pain awoke him up from sleep. He otherwise had been feeling generally well and healthy. His a history of CAD. His a chest pain is severe feels like his previous cardiac chest pain. Patient states he feels like he's going to . Some shortness of breath with it. No nausea or vomiting. Patient was feeling well before the symptoms started. History Past Medical History Narrative Medical CAD Hypertension Hyperlipidemia Social History Alcohol Use: Yes (OCC) Tobacco Use: Yes (07/29 PPD) Allergies-Medications (Allergen,Severity, Reaction): Coded Allergies: No Known Allergies (Verified , 10/07/16) Reported Meds & Prescriptions Reported Meds & Active Scripts Active Metoprolol Tartrate 25 Mg Tab 12.5 Mg PO Q12HR 90 Days Paxil (Paroxetine HCl) 40 Mg Tab 40 Mg PO DAILY Nitroglycerin SL (Nitroglycerin) 0.4 Mg Subl 0.4 Mg SL DIRECTED PRN ONE TABLET UNDER THE TONGUE NEEDED FOR CHEST PAIN, MAY REPEAT EVERY FIVE MINUTES FOR A TOTAL OF 3 DOSES OR CALL 911 IF NO RELIEF Lisinopril 5 Mg Tab 5 Mg PO DAILY Isosorbide Mononitrate ER (Isosorbide Mononitrate) 60 Mg Tab 60 Mg PO DAILY Plavix (Clopidogrel Bisulfate) 75 Mg Tab 75 Mg PO DAILY Atorvastatin (Atorvastatin Calcium) 80 Mg Tab 80 Mg PO HS Aspirin 81 Mg Chew 81 Mg CHEW DAILY 90 Days Ceftin (Cefuroxime Axetil) 500 Mg Tab 500 Mg PO BID 14 Days Review of Systems Except as stated in HPI: all other systems reviewed are Neg Physical Exam Narrative GENERAL: 56 year-old man, appears uncomfortable, a little bit diaphoretic. SKIN: Warm, moist.. EYES: Pupils equal and round. No scleral icterus. No injection or drainage. ENT: No nasal bleeding or discharge. Mucous membranes pink and moist. NECK: Trachea midline. No JVD. CARDIOVASCULAR: Regular rate and rhythm. No murmur appreciated. RESPIRATORY: No accessory muscle use. Clear to auscultation. Breath sounds equal bilaterally. GASTROINTESTINAL: Abdomen soft, non-tender, nondistended. Hepatic and splenic margins not palpable. MUSCULOSKELETAL: No obvious deformities. No edema. NEUROLOGICAL: Awake and alert. No obvious cranial nerve deficits. Motor grossly within normal limits. Normal speech. PSYCHIATRIC: Appropriate mood and affect; insight and judgment normal. Data Data Last Documented VS Vital Signs Date Time Temp Pulse Resp B/P Pulse Ox O2 Delivery O2 Flow Rate FiO2 10/07/16 01:26 91 20 173/96 100 Nasal Cannula 3 Orders Heparin Inj (Heparin Inj) (10/07/16 01:00) Nitroglycerin-Dextrose Inj (Nitroglyceri (10/07/16 01:00) Troponin I (10/07/16 01:02) Ckmb (Isoenzyme) Profile (10/07/16 01:02) Complete Blood Count With Diff (10/07/16 01:02) I-Stat Profile (10/07/16 01:02) I-Stat Creatinine (10/07/16 01:02) Calcium (10/07/16 01:02) Magnesium (Mg) (10/07/16 01:02) Prothrombin Time / Inr (Pt) (10/07/16 01:02) Act Partial Throm Time (Ptt) (10/07/16 01:02) B-Type Natriuretic Peptide (10/07/16 01:02) Chest, Single Ap (10/07/16 01:02) Electrocardiogram (10/07/16 01:02) Oxygen Administration (10/07/16 01:02) Iv Access Insert/Monitor (10/07/16 01:02) Oximetry (10/07/16 01:02) Sodium Chlor 0.9% 1000 Ml Inj (Ns 1000 M (10/07/16 01:02) Sodium Chloride 0.9% Flush (Ns Flush) (10/07/16 01:15) Aspirin Chew (Aspirin Chew) (10/07/16 01:02) Nitroglycerin Sl (Nitrostat Sl) (10/07/16 01:02) Nitroglycerin-Dextrose Inj (Nitroglyceri (10/07/16 01:15) Heparin Inj (Heparin Inj) (10/07/16 01:02) Morphine Inj (Morphine Inj) (10/07/16 01:30) CKMB (10/07/16 01:00) CKMB% (10/07/16 01:00) Heparin-Ns/Pf Inj (Heparin-Ns/Pf Inj) (10/07/16 01:36) Midazolam Inj (Versed Inj) (10/07/16 01:37) Fentanyl Inj (Fentanyl Inj) (10/07/16 01:38) Heparin Inj (Heparin Inj) (10/07/16 01:38) Nitroglycerin Inj (Nitroglycerin Inj) (10/07/16 01:38) Verapamil Inj (Isoptin Inj) (10/07/16 01:49) Labs Laboratory Tests Test 10/07/16 01:00 White Blood Count 15.1 TH/MM3 Red Blood Count 5.69 MIL/MM3 Hemoglobin 17.0 GM/DL Bedside Hemoglobin 17.7 G/DL Hematocrit 48.9 % Bedside Hematocrit 52.0 % Mean Corpuscular Volume 85.9 FL Mean Corpuscular Hemoglobin 29.8 PG Mean Corpuscular Hemoglobin 34.7 % Concent Red Cell Distribution Width 13.5 % Platelet Count 202 TH/MM3 Mean Platelet Volume 9.7 FL Neutrophils (%) (Auto) 79.1 % Lymphocytes (%) (Auto) 12.4 % Monocytes (%) (Auto) 6.5 % Eosinophils (%) (Auto) 0.7 % Basophils (%) (Auto) 1.3 % Neutrophils # (Auto) 12.0 TH/MM3 Lymphocytes # (Auto) 1.9 TH/MM3 Monocytes # (Auto) 1.0 TH/MM3 Eosinophils # (Auto) 0.1 TH/MM3 Basophils # (Auto) 0.2 TH/MM3 CBC Comment DIFF FINAL Differential Comment Prothrombin Time 10.7 SEC Prothromb Time International 1.0 RATIO Ratio Activated Partial 27.8 SEC Thromboplast Time Bedside Sodium 136 MMOL/L Bedside Potassium 3.9 MMOL/L Bedside Chloride 104 MMOL/L Bedside Blood Urea Nitrogen 20 MG/DL Bedside Creatinine 1.0 MG/DL Bedside Glucose 201 MG/DL Calcium Level 8.6 MG/DL Magnesium Level 1.9 MG/DL Total Creatine Kinase 158 U/L Creatine Kinase MB 3.7 NG/ML Troponin I 0.03 NG/ML B-Type Natriuretic Peptide 91 PG/ML MDM Medical Decision Making Medical Screen Exam Complete: Yes Emergency Medical Condition: Yes Interpretation(s) My review of EKG: Sinus rhythm. EKG showed small but significant ST elevation in the inferior leads, with ST depression in the lateral leads. Findings are subtle but I think represent true ST elevation ID. Differential Diagnosis STEMI, CAD, dissection, other Narrative Course Medical decision making 56 year-old man presents emergent from with chest pain, likely ACS. EKG suggests a STEMI. I called and spoke to Dr. Cordon, cardiology on-call, will take patient to the Salvage [employer] Technician. Diagnosis Primary Impression: STEMI (ST elevation myocardial infarction) Qualified Code: I21.3 - ST elevation myocardial infarction (STEMI), unspecified artery Admitting Information Admitting Physician Requests: Admit Reza Wooten MD Oct 07, 2016 01:55
[2016-10-07] MEDS ORDERED: CLOPIDOGREL 300 MG TAB ONE (02:29)
[2016-10-07] MEDS ORDERED: MORPHINE SULFATE 4 MG/ML INJ IV PUSH PRN (03:15)
[2016-10-07] MEDS ORDERED: HEPARIN SODIUM - SQ 10,000 UNITS/ML VIAL SQ SCH (03:15)
[2016-10-07] MEDS ORDERED: ACETAMINOPHEN 325 MG TAB PO PRN (03:15)
[2016-10-07] MEDS ORDERED: oxyCODONE/ACETAMINOPHEN 5 MG/325 MG TAB PO PRN (03:15)
[2016-10-07] MEDS ORDERED: MISC INFORMATION XX ONE (03:15)
[2016-10-07] MEDS ORDERED: oxyCODONE/ACETAMINOPHEN 10 MG/325 MG TAB PO PRN (03:15)
[2016-10-07] MEDS ORDERED: hydrALAZINE HCL 20 MG/ML VIAL IV PUSH PRN (03:30)
[2016-10-07] MEDS ORDERED: PILL SPLITTER OTHER PRN (04:00)
--- NOTE | 2016-10-07 05:32 | MB ---
cc: JAVAD HUSAIN DO DATE OF CONSULTATION October 07, 2016 REASON FOR CONSULTATION STEMI. HISTORY OF PRESENT ILLNESS Rigoberto Lewis is a pleasant 56-year-old male who presents to [facility] Emergency Room on October 07, 2016, due to chest pain. He states that he woke up suddenly with chest pain in the center his chest similar to previous times when he has had coronary problems but felt that this was much worse. The pain was 10/10. He ran out of his Plavix seven days ago and has not been able to refill his medications. On arrival he was found to have ST elevations inferiorly and I was called emergently to see the patient. PAST MEDICAL HISTORY 1. Coronary artery disease. 2. Hypertension 3. Hyperlipidemia. PAST SURGICAL HISTORY 1. Cardiac catheterization (April 18, 2016 for NSTEMI) - Left main normal. LAD stent is present with mild in-stent restenosis. Diagonal 80%. Distal LAD is diffusely diseased and subtotally occluded. Left circumflex has two obtuse marginals which were both occluded. The proximal segment of the circumflex has an 80% lesion. RCA has multiple stents present throughout the proximal and midportion. The midportion has a 90% stenosis within the distal stent margin. This was treated with a drug-eluting stent (3 x 15). 2. Multiple previous cardiac catheterizations with extensive stenting of the RCA. ALLERGIES No known drug allergies. MEDICATIONS 1. Aspirin 81 mg. 2. Plavix 75 mg (stopped taking 7 days ago). 3. Nitro sublingual as needed. 4. Imdur 60 mg daily. 5. Lipitor 80 mg every night. 6. Ceftin 500 mg b.i.d. 7. Metoprolol tartrate 12.5 mg every 12 hours. 8. Paxil 40 mg daily. 9. Lisinopril 5 mg daily. FAMILY HISTORY Father had a history of hypertension and coronary artery disease. Mom had a history of pancreatic cancer. SOCIAL HISTORY The patient continues to smoke a half-pack of cigarettes a day. He drinks four beers a week. REVIEW OF SYSTEMS Fourteen systems were reviewed in the emergency room records and above. Pertinent positives and negative as above, otherwise negative. PHYSICAL EXAMINATION VITAL SIGNS: Temperature 98.0, heart rate 91, blood pressure 173/96, respirations 20, pulse ox 100% on 3 liters. IN GENERAL: The patient appears in moderate distress, alert, awake and oriented x 3. HEENT: Extraocular muscles intact. Mucous membranes moist. NECK Supple. No JVD at 45 degrees. No carotid bruits heard bilaterally. Carotid upstroke is brisk in nature. HEART: Regular rate and rhythm. Positive first and second heart sounds with no noted murmurs, gallops or rubs. PMI is difficult to ascertain but does not does appear displaced. LUNGS: Decreased breath sounds bilaterally but no overt wheezes, rales or rhonchi. ABDOMEN: Soft, nontender, nondistended. No organomegaly noted. EXTREMITIES: No clubbing, cyanosis or edema. Femoral and distal pulses intact bilaterally. NEUROLOGICALLY: No focal deficits. SKIN: Warm, dry and intact. OSTEOPATHIC EXAM: No kyphoscoliosis, lordosis or paraspinal tender points. LABORATORY FINDINGS White blood cells 15.1, hemoglobin 17.0, hematocrit 48.9, platelets 202. Potassium 3.9, BUN 20, creatinine 1.0, glucose 200. ELECTROCARDIOGRAM (October 07, 2016 at 00:58) Sinus rhythm with ST elevations in the inferior leads and reciprocal depressions in the lateral leads. IMPRESSION 1. Acute inferior ST elevation myocardial infarction. 1. Coronary artery disease with extensive stenting of the RCA, once stent in the LAD. 2. Noncompliance with medications, stopping his Plavix seven days before. 3. Tobacco abuse. 4. Hypertension. 5. Hyperlipidemia. 6. Elevated glucose possibly reactive versus underlying undiagnosed diabetes mellitus. RECOMMENDATIONS 1. Rigoberto Lewis appears to be presenting with an inferior ST elevation AR. EKG changes are subtle but with his story I feel that he should go emergently to the cardiac catheterization lab. 2. Will check a 2-D echo to look at his overall left ventricular function, cardiac structure and possible valvopathies. 3. Will check a hemoglobin A1c due his elevation of his sugars for further risk stratification. 4. I spoke to him about tobacco cessation. He understands but does not appear to want to quit this time. 5. Further recommendations will be made after coronary visualization. Thank you for allowing me to see Rigoberto Lewis. If there are any questions, please do not hesitate to call. Javad Husain DO VGP/SSB /1:52 AM /4:20 AM
--- NOTE | 2016-10-07 05:50 | MA ---
cc: JAVAD HUSAIN DO DATE OF PROCEDURE October 07, 2016 PROCEDURE Left heart catheterization, coronary angiogram, IVUS of RCA, aspiration thrombectomy and balloon angioplasty of late stent thrombosis of RCA. PREPROCEDURE DIAGNOSIS Inferior STEMI, chest pain. POSTPROCEDURE DIAGNOSES Multivessel coronary artery disease, late stent thrombosis of the RCA status post aspiration and balloon angioplasty. CONTRAST USED 175 cc. FLUOROSCOPY 10.9 minutes. ANESTHESIA Moderate sedation for 30 minutes. PROCEDURAL SUMMARY Rigoberto Lewis is a pleasant 56-year-old male who presents to [facility] due to chest pain. Of note, he recently had an NSTEMI in March 2016 and had a drug-eluting stent placed in his RCA. He recently stopped his Plavix seven days ago due to problems with his insurance. On arrival he was found to have ST elevations in the inferior lead and it was felt that he needed to go to the cardiac catheterization lab emergently. Risks, benefits and alternatives were explained to him and he consented as such. He was brought to the agriculture laborer and prepped in the usual sterile fashion. The right radial artery was accessed using a modified Seldinger technique and placement of a 5/6 Slender Sheath. A JL-4 was advanced over a J-wire to the ascending aorta. This was used for selective angiography of the left coronary system. The left main is angiographically normal and bifurcates into an LAD and left circumflex. The LAD has mild luminal irregularities through the proximal portion with a stent in the proximal to midportion with mild in-stent restenosis. The distal LAD is diffusely diseased and subtotally occluded. The left circumflex has an 80% lesion in the proximal portion. It gives off one large obtuse marginal. Two other obtuse marginals are noted that are occluded. The distal circumflex gives off a small recurrent branch and seems to cover a small area of myocardium. The JL-4 was then exchanged for a JR-4 for selective angiography of the right coronary system. The right coronary system has extensive stenting throughout and angiography shows occlusion of the midportion of his previous stenting. The JR-4 was then exchanged for a JR-4 guide. The patient was given heparin for an anticoagulant. A BMW wire was then advanced into the distal RCA. A Pronto aspiration catheter was used for two runs. Because of the stent thrombosis and concern for multiple layers of stents, an IVUS catheter was used showing that overall the stents were relatively well opposed. At this time the patient has had at least two layers of stents throughout this section of the right coronary artery I did not feel that adding another layer of stents would benefit him. I felt that a stent thrombosis was due to stopping his Plavix six months after placement of his drug-eluting stent as well as his NSTEMI at the time. A Non-Compliant balloon (3.0 x 12) was then advanced into the midsection and inflated across the midportion of the RCA stents. Post-angiogram shows well opposed stents with no edge dissection or tears and no perforation distally. The BMW wire was then removed. The JR-4 guide was then exchanged for the JR-4 catheter and this was used cross the aortic valve and measurement of left ventricular pressures (LVEDP 28). The JR-4 catheter was then removed. A TR Band was placed over the radial sheath to create hemostasis. The patient was loaded with 600 mg of Plavix while on the table. He left the Medical Assisting Program Director cardiovascularly stable. IMPRESSIONS 1. Acute inferior ST-elevation myocardial infarction with lae stent thrombosis of previous RCA stenting due to stopping his Plavix early, status post aspiration thrombectomy and balloon angioplasty. 2. Multivessel coronary artery disease with no significant change of the left coronary system compared to previous cardiac catheterization (March 2016). 3. Tobacco abuse. RECOMMENDATIONS 1. Rigoberto's stent thrombosis is most likely due to stopping his Plavix. I explained to him that overall he should be on aspirin indefinitely and consideration of Plavix indefinitely due to his multiple layers of stents and significant coronary artery disease. 2. I spoke to him about tobacco abuse for greater than 3 minutes in he understands but I do not think that he is willing to quit at this time. 3. He will be placed on aspirin and Plavix, beta-bella and statin therapy. 4. We will obtain a 2-D echo to look at his overall left ventricular function, cardiac structure and possible valopathies. Thank you for allowing me to see Rigoberto Lewis. If there are any questions, please do not hesitate to call. Javad Husain DO VGP/SSB /2:05 AM /4:33 AM
[2016-10-07] MEDS: ISOSORBIDE MONONITRATE 60 MG TAB PO SCH ×2 (06:23→08:44)
[2016-10-07 08:11] LABS: AUTOMATED NEUTROPHIL # 8.8 TH/MM3 (1.8-7.7); BASOPHIL # 0.2 TH/MM3 (0-0.2); BASOPHIL % 1.3 % (0.0-2.0); EOSINOPHIL # 0.1 TH/MM3 (0-0.4); EOSINOPHIL % 0.7 % (0.0-4.0); HEMATOCRIT 44.8 % (39.0-51.0); HEMO FLAGS DIFF FINAL; LYMPH % 17.6 % (9.0-44.0); LYMPHOCYTE # 2.1 TH/MM3 (1.0-4.8); MEAN CELL VOLUME 86.4 FL (80.0-100.0); MEAN CORPUSCULAR HEMOGLOBIN 29.4 PG (27.0-34.0); MONO % 7.9 % (0.0-8.0); NEUT % 72.5 % (16.0-70.0); PLATELET COUNT 167 TH/MM3 (150-450); RED BLOOD COUNT 5.18 MIL/MM3 (4.50-5.90); RED CELL DISTRIBUTION WIDTH 13.8 % (11.6-17.2); WHITE BLOOD COUNT 12.2 TH/MM3 (4.0-11.0)
[2016-10-07 08:32] LABS: ANION GAP 8 MEQ/L (5-15); BICARBONATE 23.6 MEQ/L (21.0-32.0); BLOOD UREA NITROGEN 15 MG/DL (7-18); CHLORIDE 107 MEQ/L (98-107); GLOMERULAR FILTRATION RATE 83 ML/MIN (>89); LDL CHOLESTEROL 85 MG/DL (0-99); POTASSIUM 3.7 MEQ/L (3.5-5.1); SODIUM (NA) 139 MEQ/L (136-145)
[2016-10-07] MEDS: LISINOPRIL 5 MG TAB PO SCH (08:44)
[2016-10-07] MEDS: METOPROLOL TARTRATE 25 MG TAB PO SCH ×2 (08:44→21:22)
[2016-10-07] MEDS: CLOPIDOGREL 75 MG TAB PO SCH (08:44)
[2016-10-07] MEDS: ASPIRIN 81 MG CHEW TAB CHEW SCH (08:44)
[2016-10-07] MEDS: PARoxetine HCL 20 MG TAB PO SCH (08:45)
[2016-10-07] MEDS ORDERED: IOHEXOL 350 MG/ML 100 ML BTL (for Cath Lab) OTHER ONE (08:53)
[2016-10-07] MEDS: SODIUM CHLORIDE 0.9% FLUSH 5 ML FLUSH IVF SCH ×2 (08:58→21:00)
[2016-10-07] MEDS ORDERED: CEFUROXIME AXETIL 500 MG TAB PO SCH (09:00)
--- NOTE | 2016-10-07 10:44 | HHI.HP ---
[facility] No Primary Care Physician Admission Diagnosis STEMI Diagnoses: Chief Complaint: Chest pain Travel History International Travel<30 Days: No Contact w/Intl Traveler <30 Da: No Traveled to Known Affected Are: No History of Present Illness 56-year-old male with a medical history significant for coronary artery disease , hypertension, hyperlipidemia presents to the emergency room with complaint of chest pain that woke him up from his sleep. The patient reports a severe pressure type pain similar to his previous cardiac related chest pain. He reports associated shortness of breath. No nausea or vomiting. Patient was found to have findings consistent with STEMI on arrival to the emergency room. He was emergently taken to the [facility] where he was found to have in-stent stenosis of RCA. He underwent aspiration and angioplasty. Apparently the patient has not been taking his Plavix. He reports to me that he needs a refill on all of his medications. He continued to smoke. Currently reports that he is feeling well since the procedure except for slight amount of chest pain. Review of Systems Constitutional: DENIES: Fever, Chills Respiratory: DENIES: Cough Cardiovascular: COMPLAINS OF: Chest pain, DENIES: Syncope, Lower Extremity Edema, Orthopnea Except as stated in HPI: all other systems reviewed are Neg Past Family Social History Past Medical History Coronary artery disease Hypertension Hyperlipidemia Past Surgical History Multiple cardiac stents Reported Medications Reported Meds & Active Scripts Active Metoprolol Tartrate 25 Mg Tab 12.5 Mg PO Q12HR 90 Days Paxil (Paroxetine HCl) 40 Mg Tab 40 Mg PO DAILY Nitroglycerin SL (Nitroglycerin) 0.4 Mg Subl 0.4 Mg SL DIRECTED PRN ONE TABLET UNDER THE TONGUE NEEDED FOR CHEST PAIN, MAY REPEAT EVERY FIVE MINUTES FOR A TOTAL OF 3 DOSES OR CALL 911 IF NO RELIEF Lisinopril 5 Mg Tab 5 Mg PO DAILY Isosorbide Mononitrate ER (Isosorbide Mononitrate) 60 Mg Tab 60 Mg PO DAILY Plavix (Clopidogrel Bisulfate) 75 Mg Tab 75 Mg PO DAILY Atorvastatin (Atorvastatin Calcium) 80 Mg Tab 80 Mg PO HS Aspirin 81 Mg Chew 81 Mg CHEW DAILY 90 Days Allergies: Coded Allergies: No Known Allergies (Verified , 10/07/16) Family History Reviewed and noncontributory. Social History Smoke have a pack of cigarettes per day for the past 30+ years. Admits to occasional alcohol. Denies illicit drug use Physical Exam Vital Signs Vital Signs Date Time Temp Pulse Resp B/P Pulse Ox O2 Delivery O2 Flow Rate FiO2 10/07/16 08:00 94 Room Air 10/07/16 07:52 98 Nasal Cannula 3.00 10/07/16 07:52 98.0 88 18 104/69 95 10/07/16 07:00 89 10/07/16 03:00 97.8 88 18 149/93 95 10/07/16 03:00 88 10/07/16 03:00 95 Nasal Cannula 3.00 10/07/16 01:26 91 20 173/96 100 Nasal Cannula 3 10/07/16 01:23 86 18 170/90 100 Nasal Cannula 2 10/07/16 01:11 83 20 163/95 98 Nasal Cannula 3 10/07/16 01:08 81 18 171/94 100 Nasal Cannula 3 10/07/16 01:05 18 100 Nasal Cannula 3 10/07/16 01:05 100 Nasal Cannula 3 10/07/16 01:01 84 10/07/16 00:58 88 18 177/106 99 Physical Exam GENERAL: This is a well-nourished, well-developed patient, in no apparent distress. SKIN: No rashes, ecchymoses or lesions. Cool and dry. HEAD: Atraumatic. Normocephalic. No temporal or scalp tenderness. EYES: Pupils equal round and reactive. Extraocular motions intact. No scleral icterus. No injection or drainage. ENT: Nose without bleeding, purulent drainage or septal hematoma. Throat without erythema, tonsillar hypertrophy or exudate. Uvula midline. Airway patent. NECK: Trachea midline. No JVD or lymphadenopathy. Supple, nontender, no meningeal signs. CARDIOVASCULAR: Regular rate and rhythm without murmurs, gallops, or rubs. RESPIRATORY: Clear to auscultation. Breath sounds equal bilaterally. No wheezes , rales, or rhonchi. GASTROINTESTINAL: Abdomen soft, non-tender, nondistended. No hepato-splenomegaly , or palpable masses. No guarding. MUSCULOSKELETAL: Extremities without clubbing, cyanosis, or edema. No joint tenderness, effusion, or edema noted. No calf tenderness. Negative Homans sign bilaterally. NEUROLOGICAL: Awake and alert. Cranial nerves II through XII intact. Motor and sensory grossly within normal limits. Five out of 5 muscle strength in all muscle groups. Normal speech. Laboratory Laboratory Tests Test 10/07/16 10/07/16 01:00 07:55 White Blood Count 15.1 12.2 Red Blood Count 5.69 5.18 Hemoglobin 17.0 15.2 Bedside Hemoglobin 17.7 Hematocrit 48.9 44.8 Bedside Hematocrit 52.0 Mean Corpuscular Volume 85.9 86.4 Mean Corpuscular Hemoglobin 29.8 29.4 Mean Corpuscular Hemoglobin 34.7 34.0 Concent Red Cell Distribution Width 13.5 13.8 Platelet Count 202 167 Mean Platelet Volume 9.7 9.6 Neutrophils (%) (Auto) 79.1 72.5 Lymphocytes (%) (Auto) 12.4 17.6 Monocytes (%) (Auto) 6.5 7.9 Eosinophils (%) (Auto) 0.7 0.7 Basophils (%) (Auto) 1.3 1.3 Neutrophils # (Auto) 12.0 8.8 Lymphocytes # (Auto) 1.9 2.1 Monocytes # (Auto) 1.0 1.0 Eosinophils # (Auto) 0.1 0.1 Basophils # (Auto) 0.2 0.2 CBC Comment DIFF FINAL DIFF FINAL Differential Comment Prothrombin Time 10.7 Prothromb Time International 1.0 Ratio Activated Partial 27.8 Thromboplast Time Bedside Sodium 136 Bedside Potassium 3.9 Bedside Chloride 104 Bedside Blood Urea Nitrogen 20 Bedside Creatinine 1.0 Bedside Glucose 201 Calcium Level 8.6 7.9 Magnesium Level 1.9 Total Creatine Kinase 158 Creatine Kinase MB 3.7 Troponin I 0.03 B-Type Natriuretic Peptide 91 Sodium Level 139 Potassium Level 3.7 Chloride Level 107 Carbon Dioxide Level 23.6 Anion Gap 8 Blood Urea Nitrogen 15 Creatinine 0.94 Estimat Glomerular Filtration 83 Rate Random Glucose 165 Triglycerides Level 176 Cholesterol Level 154 LDL Cholesterol 85 HDL Cholesterol 34.0 Cholesterol/HDL Ratio 4.52 Result Diagram: 10/07/16 0755 10/07/16 0755 Assessment and Plan Problem List: (1) STEMI (ST elevation myocardial infarction) ICD Code: I21.3 Status: Acute Plan: Patient is status post heart catheterization, thrombectomy, aspiration and angioplasty by Dr. Cordon. I discussed the case with him. Probably resulted from the patient not taking his Plavix. - Resume aspirin, Plavix, metoprolol (2) HTN (hypertension) ICD Code: I10 Status: Chronic Plan: Continue lisinopril, metoprolol as above. (3) CAD (coronary artery disease) ICD Code: I25.10 Status: Acute Plan: Continue aspirin, Plavix, Imdur and statin. Appreciate cardiology following as above. (4) Tobacco abuse ICD Code: Z72.0 Status: Acute Plan: Patient extensively counseled to quit using tobacco. He reports that he will not smoke again. Assessment and Plan Resume home medication for chronic condition including depression. Discussed Condition With [facility], Dr. Cordon Physician Certification 2 Midnight Certification Type: Admission for Inpatient Services Order for Inpatient Services The services are ordered in accordance with Medicare regulations or non- Medicare payer requirements, as applicable. In the case of services not specified as inpatient-only, they are appropriately provided as inpatient services in accordance with the 2-midnight benchmark. Estimated LOS (days): 2 days is the estimated time the patient will need to remain in the hospital, assuming treatment plan goals are met and no additional complications. Post-Hospital Plan: Home Problem Qualifiers (1) STEMI (ST elevation myocardial infarction): Qualified Code: I21.3 - ST elevation myocardial infarction (STEMI), unspecified artery Brant Azevedo MD Oct 07, 2016 10:44
[2016-10-07 11:17] LABS: HEMOGLOBIN A1a 1.1 %; HEMOGLOBIN A1b 1.9 %; HEMOGLOBIN Ao 82.2 %; HEMOGLOBIN LA1C 2.7 %; HEMOGLOBIN P3 4.3 %
[2016-10-07] MEDS: HEPARIN SODIUM - SQ 10,000 UNITS/ML VIAL SQ SCH ×2 (14:00→21:22)
--- NOTE | 2016-10-07 16:19 | EC ---
Study Study Date:10/07/2016 STUDY CONCLUSIONS SUMMARY LEFT VENTRICLE: The cavity size was mildly dilated. Wall thickness was at the upper limits of normal. Systolic function was moderately reduced. The estimated ejection fraction was in the range of 40% to 45%. Possible dyskinesis of the distal inferior myocardium; consistent with infarction. Akinesis of the basal-mid inferior myocardium. If LV function is below 40, please consider prescribing an ACEI or ARB or document rationale for non-use. PROCEDURE DATA STUDY STATUS: Elective. Procedure: Transthoracic echocardiography. Image quality was good. Scanning was performed from the parasternal, apical, and subcostal acoustic windows. Study completion: The patient tolerated the procedure well. Transthoracic echocardiography. M-mode, complete 2D, complete spectral Doppler, and color Doppler. Patient status: Inpatient. CARDIAC ANATOMY LEFT VENTRICLE: The cavity size was mildly dilated. Wall thickness was at the upper limits of normal. Systolic function was moderately reduced. The estimated ejection fraction was in the range of 40% to 45%. Regional wall motion abnormalities: Possible dyskinesis of the distal inferior myocardium; consistent with infarction. Akinesis of the basal-mid inferior myocardium. AORTIC VALVE: The valve appears to be grossly normal. Trileaflet. Doppler: There was no stenosis. No significant regurgitation. MITRAL VALVE: The valve appears to be grossly normal. Doppler: There was no evidence for stenosis. Trace regurgitation. LEFT ATRIUM: The atrium was mildly dilated. RIGHT VENTRICLE: The cavity size was normal. PULMONIC VALVE: Not well visualized. Doppler: There was no evidence for stenosis. No significant regurgitation. TRICUSPID VALVE: The valve appears to be grossly normal. Doppler: There was no evidence for stenosis. Trace regurgitation. PERICARDIUM: There was no pericardial effusion. BASIC MEASUREMENTS ADULT NORMAL Left ventricle LV internal dimension, ED, chordal level, *56.5 mm 43-52 PLAX LV internal dimension, ES, chordal level, *46.4 mm 23-38 PLAX Fractional shortening, chordal level, PLAX *18 % >29 LV posterior wall thickness, ED 9 mm IVS/LVPW ratio, ED *1.47 <1.3 Ventricular septum Septal thickness, ED 13.2 mm Aortic valve Leaflet separation *27 mm 15-26 Right ventricle RV internal dimension, ED, PLAX 29.1 mm 19-38 BASIC MEASUREMENTS ADULT NORMAL Aortic valve Leaflet separation *27 mm 15-26 Aorta Root diameter, ED *38 mm 20-37 Left atrium Anterior-posterior dimension, ES *42 mm 19-40 LA/aortic root ratio 1.11 DOPPLER MEASUREMENTS ADULT NORMAL Mitral valve Peak E-wave velocity 60.2 cm/s Peak A-wave velocity 74.5 cm/s Peak E/A ratio 0.8 LEGEND: Mean values are shown as u=mean value. Asterisk (*) loyola values outside specified normal range. Prepared and signed by Javad Cordon [id number]
--- NOTE | 2016-10-07 18:16 | EKG ---
Date Performed: 10/07/2016 Time Performed: 00:58:37 PTAGE: 56 years EKG: Sinus rhythm WITH SINUS ARRHYTHMIA INFERIOR MYOCARDIAL INFARCTION ACUTE LA When compared to PREVIOUS TRACING , the patient has developed ST Elevation in the inferior leads with reci prical change. EKG is highly suggestive of huge ST elevation injury to the inferior Wall. Clinical co rrelation is suggested. PREVIOUS TRACIN04/19/2016 05.00 DOCTOR: Ursula Fuentes Interpretating Date/Time 10/07/2016 18:15:23
[2016-10-07] MEDS: ATORVASTATIN 80 MG TAB PO SCH (21:22)
[2016-10-08] VITALS (23 sets, daily range): BP systolic 105–139; BP diastolic 67–76; PULSE 54–75; RESP 16–20; TEMP 97.7–98.6; O2SAT 96–98
[2016-10-08] MEDS: ISOSORBIDE MONONITRATE 60 MG TAB PO SCH (05:47)
[2016-10-08] MEDS: HEPARIN SODIUM - SQ 10,000 UNITS/ML VIAL SQ SCH ×3 (05:47→20:46)
[2016-10-08 05:58] LABS: AUTOMATED NEUTROPHIL # 7.6 TH/MM3 (1.8-7.7); BASOPHIL # 0.2 TH/MM3 (0-0.2); BASOPHIL % 2.1 % (0.0-2.0); EOSINOPHIL # 0.3 TH/MM3 (0-0.4); EOSINOPHIL % 2.4 % (0.0-4.0); HEMATOCRIT 45.9 % (39.0-51.0); HEMO FLAGS DIFF FINAL; LYMPH % 20.3 % (9.0-44.0); LYMPHOCYTE # 2.4 TH/MM3 (1.0-4.8); MEAN CELL VOLUME 87.3 FL (80.0-100.0); MEAN CORPUSCULAR HEMOGLOBIN 29.3 PG (27.0-34.0); MEAN CORPUSCULAR HGB CONC 33.5 % (32.0-36.0); MONO % 10.4 % (0.0-8.0); NEUT % 64.8 % (16.0-70.0); PLATELET COUNT 182 TH/MM3 (150-450); RED BLOOD COUNT 5.26 MIL/MM3 (4.50-5.90); RED CELL DISTRIBUTION WIDTH 14.2 % (11.6-17.2); WHITE BLOOD COUNT 11.7 TH/MM3 (4.0-11.0)
[2016-10-08 06:18] LABS: BICARBONATE 23.2 MEQ/L (21.0-32.0); POTASSIUM 4.3 MEQ/L (3.5-5.1)
[2016-10-08] MEDS: PARoxetine HCL 20 MG TAB PO SCH (08:26)
[2016-10-08] MEDS: SODIUM CHLORIDE 0.9% FLUSH 5 ML FLUSH IVF SCH ×2 (08:26→20:47)
[2016-10-08] MEDS: METOPROLOL TARTRATE 25 MG TAB PO SCH ×2 (08:26→20:47)
[2016-10-08] MEDS: CLOPIDOGREL 75 MG TAB PO SCH (08:27)
[2016-10-08] MEDS: ASPIRIN 81 MG CHEW TAB CHEW SCH (08:27)
[2016-10-08] MEDS: LISINOPRIL 5 MG TAB PO SCH (08:27)
[2016-10-08] MEDS ORDERED: PNEUMOCOCCAL POLYVALENT INJ 25 MCG/0.5 ML SYR IM ONE (10:00)
[2016-10-08] MEDS ORDERED: INFLUENZA VIRUS VACCINE (QUADRIVALENT) 0.5 ML SYR IM ONE (10:00)
--- NOTE | 2016-10-08 10:50 | HHI.PR ---
Subjective Remarks No acute events overnight. Afebrile, vital signs stable. Patient states he's feeling great this morning. Denies any chest pain/shortness of breath. Having regular bowel movements. Objective Vitals Vital Signs Date Time Temp Pulse Resp B/P Pulse Ox O2 Delivery O2 Flow Rate FiO2 10/08/16 08:00 98.1 75 20 127/71 96 10/08/16 07:00 63 10/08/16 06:00 58 10/08/16 05:00 59 10/08/16 04:00 98.6 61 16 139/76 98 10/08/16 04:00 63 10/08/16 04:00 96 Room Air 10/08/16 02:00 58 10/08/16 01:00 58 10/08/16 00:00 57 10/07/16 23:00 58 10/07/16 22:00 58 10/07/16 21:00 64 10/07/16 20:30 94 Room Air 10/07/16 20:00 66 10/07/16 20:00 98.4 78 16 119/70 98 10/07/16 19:00 66 10/07/16 16:00 98.6 86 16 122/66 99 10/07/16 15:00 75 10/07/16 15:00 96 Room Air 10/07/16 12:00 98.4 60 18 95/51 98 10/07/16 11:00 61 10/07/16 11:00 94 Room Air I/O 10/07/16 10/07/16 10/07/16 10/08/16 10/08/16 10/08/16 07:00 15:00 23:00 07:00 15:00 23:00 Intake Total 240 ml 360 ml 240 ml Output Total 600 ml Balance -360 ml 360 ml 240 ml Intake Oral 240 ml 360 ml 240 ml Output Urine Total 600 ml # Voids 1 2 # Bowel Movements 0 0 Result Diagram: 10/08/1651610/08/16516 Objective Remarks Gen.: No acute distress Head: Normocephalic. Atraumatic. EENT: Pupils equal round and reactive to light. Nose without drainage. Airway intact. Throat without injection. Cardiovascular: Regular rate and rhythm. No murmurs, rubs or gallops. Respiratory: Lungs clear to auscultation bilaterally. No wheezes or rhonchi. Abdomen: Soft, nontender, nondistended. No peritoneal signs. Musculoskeletal: No gross deformities. No edema. Skin: No obvious rashes or erythema. Neuro: Sensory and motor grossly intact. Cranial nerves II through XII grossly intact. Psych: Appropriate mood and affect A/P Problem List: (1) STEMI (ST elevation myocardial infarction) ICD Code: I21.3 Status: Acute Plan: Patient is status post heart catheterization, thrombectomy, aspiration and angioplasty by Dr. Cordon. Probably resulted from the patient not taking his Plavix. - Resume aspirin, Plavix, metoprolol - Plan for DC tomorrow if remain stable (2) HTN (hypertension) ICD Code: I10 Status: Chronic Plan: Continue lisinopril, metoprolol as above. (3) CAD (coronary artery disease) ICD Code: I25.10 Status: Chronic Plan: Continue aspirin, Plavix, Imdur and statin. Echo with EF of 4045 percent. Appreciate cardiology following. (4) Tobacco abuse ICD Code: Z72.0 Status: Chronic Plan: Patient extensively counseled to quit using tobacco. He reports that he will not smoke again. (5) Diabetes ICD Code: E11.9 Status: Acute Plan: New diagnosis per the patient. - Consult special education paraeducator - Start Metformin - SSI with accuchecks. - 1800 yenny diet. Assessment and Plan Patient seen and evaluated with resident under direct supervision, agree with assessment and plan. I attest that I had a [id number] encounter with the patient on the same day, and personally performed and documented my assessment and findings in the medical record. Problem Qualifiers (1) STEMI (ST elevation myocardial infarction): Qualified Code: I21.3 - ST elevation myocardial infarction (STEMI), unspecified artery (2) Diabetes: Susan Duncan MD R3 Oct 08, 2016 10:50 Brant Azevedo MD Oct 08, 2016 12:08
--- NOTE | 2016-10-08 11:10 | PD.CARD.PN ---
Subjective Subjective Remarks No chest pain, no shortness of breath Objective Medications Current Medications Medications (Trade) Dose Ordered Sig/Dima Route Start Time Stop Time Status Last Admin IV Flush 2 ml 2 ml UNSCH PRN IVF 10/07/16 01:15 10/08/16 05:47 (Nitroglycerin-Dextrose Inj) 250 ml @ 0 mls/hr TITRATE IV 10/07/16 01:15 10/07/16 01:11 (Aspirin Chew) 81 mg DAILY CHEW 10/07/16 09:00 10/08/16 08:27 (Lipitor) 80 mg HS PO 10/07/16 21:00 10/07/16 21:22 (Plavix) 75 mg DAILY PO 10/07/16 09:00 10/08/16 08:27 (Imdur) 60 mg DAILY@07 PO 10/07/16 07:00 10/08/16 05:47 (Prinivil) 5 mg DAILY PO 10/07/16 09:00 10/08/16 08:27 (Lopressor) 12.5 mg Q12HR PO 10/07/16 09:00 10/08/16 08:26 (Paxil) 40 mg DAILY PO 10/07/16 09:00 10/08/16 08:26 (Tylenol) 325 mg Q4H PRN PO 10/07/16 03:15 (Percocet 5-325 Mg) 1 tab Q4H PRN PO 10/07/16 03:15 (Percocet 10-325 Mg) 1 tab Q4H PRN PO 10/07/16 03:15 (Morphine Inj) 2 mg Q30M PRN IV PUSH 10/07/16 03:15 (NS Flush) 2 ml UNSCH PRN IVF 10/07/16 03:15 (NS Flush) 2 ml BID IVF 10/07/16 09:00 10/08/16 08:26 (Heparin Inj) 5,000 units Q8HR SQ 10/07/16 14:00 10/08/16 05:47 (Apresoline Inj) 10 mg Q6HR PRN IV PUSH 10/07/16 03:30 (Pill Splitter) 1 ea UNSCH PRN OTHER 10/07/16 04:00 Vital Signs / I&O Vital Signs Date Time Temp Pulse Resp B/P Pulse Ox O2 Delivery O2 Flow Rate FiO2 10/08/16 08:00 98.1 75 20 127/71 96 10/08/16 07:00 63 10/08/16 06:00 58 10/08/16 05:00 59 10/08/16 04:00 98.6 61 16 139/76 98 10/08/16 04:00 63 10/08/16 04:00 96 Room Air 10/08/16 02:00 58 10/08/16 01:00 58 10/08/16 00:00 57 10/07/16 23:00 58 10/07/16 22:00 58 10/07/16 21:00 64 10/07/16 20:30 94 Room Air 10/07/16 20:00 66 10/07/16 20:00 98.4 78 16 119/70 98 10/07/16 19:00 66 10/07/16 16:00 98.6 86 16 122/66 99 10/07/16 15:00 75 10/07/16 15:00 96 Room Air 10/07/16 12:00 98.4 60 18 95/51 98 10/07/16 11:00 61 10/07/16 11:00 94 Room Air I/O 10/07/16 10/07/16 10/07/16 10/08/16 10/08/16 10/08/16 07:00 15:00 23:00 07:00 15:00 23:00 Intake Total 240 ml 360 ml 240 ml Output Total 600 ml Balance -360 ml 360 ml 240 ml Intake Oral 240 ml 360 ml 240 ml Output Urine Total 600 ml # Voids 1 2 # Bowel Movements 0 0 Physical Exam GENERAL: NAD, AAOx3 SKIN: Warm and dry. HEAD: Atraumatic. Normocephalic. EYES: Pupils equal and round. No scleral icterus. No injection or drainage. ENT: No nasal bleeding or discharge. Mucous membranes pink and moist. NECK: Trachea midline. No JVD. CARDIOVASCULAR: Regular rate and rhythm. RESPIRATORY: No accessory muscle use. Clear to auscultation. Breath sounds equal bilaterally. GASTROINTESTINAL: Abdomen soft, non-tender, nondistended. Hepatic and splenic margins not palpable. MUSCULOSKELETAL: Extremities without clubbing, cyanosis, or edema. No obvious deformities. Right radial no hematoma, neurovascularly intact distally NEUROLOGICAL: Awake and alert. No obvious cranial nerve deficits. Motor grossly within normal limits. Five out of 5 muscle strength in the arms and legs. Normal speech. PSYCHIATRIC: Appropriate mood and affect; insight and judgment normal. Laboratory Laboratory Tests Test 10/08/16 05:17 White Blood Count 11.7 TH/MM3 Red Blood Count 5.26 MIL/MM3 Hemoglobin 15.4 GM/DL Hematocrit 45.9 % Mean Corpuscular Volume 87.3 FL Mean Corpuscular Hemoglobin 29.3 PG Mean Corpuscular Hemoglobin 33.5 % Concent Red Cell Distribution Width 14.2 % Platelet Count 182 TH/MM3 Mean Platelet Volume 9.8 FL Neutrophils (%) (Auto) 64.8 % Lymphocytes (%) (Auto) 20.3 % Monocytes (%) (Auto) 10.4 % Eosinophils (%) (Auto) 2.4 % Basophils (%) (Auto) 2.1 % Neutrophils # (Auto) 7.6 TH/MM3 Lymphocytes # (Auto) 2.4 TH/MM3 Monocytes # (Auto) 1.2 TH/MM3 Eosinophils # (Auto) 0.3 TH/MM3 Basophils # (Auto) 0.2 TH/MM3 CBC Comment DIFF FINAL Differential Comment Sodium Level 142 MEQ/L Potassium Level 4.3 MEQ/L Chloride Level 107 MEQ/L Carbon Dioxide Level 23.2 MEQ/L Anion Gap 12 MEQ/L Blood Urea Nitrogen 12 MG/DL Creatinine 0.98 MG/DL Estimat Glomerular Filtration 79 ML/MIN Rate Random Glucose 140 MG/DL Calcium Level 8.7 MG/DL Assessment and Plan Problem List: (1) STEMI (ST elevation myocardial infarction) (2) CAD (coronary artery disease) (3) Tobacco abuse (4) HTN (hypertension) (5) Hemoglobin A1c between 7.0% and 9.0% Assessment and Plan 1) Inferior STEMI with late stent thrombosis due to stopping his Plavix due to insurance, discussed with him about stopping his medications 2) Aspiration thrombectomy and POBA for distal stent with excellent result 3) Continue ASA/Plavix 4) Consider Metformin or insulin for elevated A1C 5) Plan for discharge in 24 hours Problem Qualifiers (1) STEMI (ST elevation myocardial infarction): Qualified Code: I21.3 - ST elevation myocardial infarction (STEMI), unspecified artery Javad Cordon DO Oct 08, 2016 11:10
[2016-10-08] MEDS ORDERED: DEXTROSE 50% IN WATER 50 ML VIAL(D50) IV PUSH PRN (11:15)
[2016-10-08] MEDS ORDERED: GLUCAGON 1 MG/ML VIAL OTHER PRN (11:15)
[2016-10-08] MEDS: INSULIN ASPART SUPPLEMENTAL SCALE SQ SCH ×2 (16:00→21:00)
[2016-10-08] MEDS: ATORVASTATIN 80 MG TAB PO SCH (20:46)
[2016-10-09] VITALS (11 sets, daily range): BP systolic 116–132; BP diastolic 70–79; PULSE 54–71; RESP 18–20; TEMP 98; O2SAT 98
[2016-10-09] MEDS: HEPARIN SODIUM - SQ 10,000 UNITS/ML VIAL SQ SCH (05:40)
[2016-10-09] MEDS: ISOSORBIDE MONONITRATE 60 MG TAB PO SCH (05:40)
[2016-10-09] MEDS: INSULIN ASPART SUPPLEMENTAL SCALE SQ SCH (06:06)
[2016-10-09] MEDS: PARoxetine HCL 20 MG TAB PO SCH (08:57)
[2016-10-09] MEDS: ASPIRIN 81 MG CHEW TAB CHEW SCH (08:57)
[2016-10-09] MEDS: METOPROLOL TARTRATE 25 MG TAB PO SCH (08:58)
[2016-10-09] MEDS: CLOPIDOGREL 75 MG TAB PO SCH (08:58)
[2016-10-09] MEDS: SODIUM CHLORIDE 0.9% FLUSH 5 ML FLUSH IVF SCH (08:58)
[2016-10-09] MEDS: LISINOPRIL 5 MG TAB PO SCH (08:58)
[2016-10-09] MEDS ORDERED: metFORMIN HCL 500 MG TAB PO SCH (09:00)
[2016-10-09] MEDS ORDERED: ATOR1TAB18 PO (10:12)
[2016-10-09] MEDS ORDERED: PLAV75TA29 PO (10:12)
[2016-10-09] MEDS ORDERED: PAXI40TA PO (10:12)
[2016-10-09] MEDS ORDERED: ASPI81CH CHEW (10:12)
[2016-10-09] MEDS ORDERED: METO25TA3 PO (10:12)
[2016-10-09] MEDS ORDERED: LISI-519 PO (10:12)
[2016-10-09] MEDS ORDERED: ISOS60TA PO (10:12)
[2016-10-09] MEDS ORDERED: METF500 PO (10:12)
--- NOTE | 2016-10-09 10:13 | HHI.DCPOC ---
Discharge Care Plan Diagnosis: (1) STEMI (ST elevation myocardial infarction) (2) HTN (hypertension) (3) CAD (coronary artery disease) (4) Tobacco abuse (5) Diabetes (6) Depression Goals to Promote Your Health * To prevent worsening of your condition and complications * To maintain your health at the optimal level Directions to Meet Your Goals Take your medications as prescribed Follow your dietary instruction Follow activity as directed Keep your appointments as scheduled Take your immunizations and boosters as scheduled If your symptoms worsen call your PCP, if no PCP go to Urgent Care Center or Emergency Room Smoking is Dangerous to Your Health. Avoid second hand smoke Call the 24-hour hour crisis hotline for domestic abuse at Brant Azevedo MD Oct 09, 2016 10:13
--- NOTE | 2016-10-09 10:13 | HHI.DS ---
Discharge Summary Admission Date Oct 07, 2016 at 01:55 Discharge Date: Oct 09, 2016 Admitting Diagnosis STEMI (1) STEMI (ST elevation myocardial infarction) ICD Code: I21.3 (2) HTN (hypertension) ICD Code: I10 (3) CAD (coronary artery disease) ICD Code: I25.10 (4) Tobacco abuse ICD Code: Z72.0 (5) Diabetes ICD Code: E11.9 Procedures Heart catheterization, thrombectomy and aspiration, angioplasty. Brief History - From Admission 56-year-old male with a medical history significant for coronary artery disease , hypertension, hyperlipidemia presents to the emergency room with complaint of chest pain that woke him up from his sleep. The patient reports a severe pressure type pain similar to his previous cardiac related chest pain. He reports associated shortness of breath. No nausea or vomiting. Patient was found to have findings consistent with STEMI on arrival to the emergency room. He was emergently taken to the Technical Account Representative where he was found to have in-stent stenosis of RCA. He underwent aspiration and angioplasty. Apparently the patient has not been taking his Plavix. He reports to me that he needs a refill on all of his medications. He continued to smoke. Currently reports that he is feeling well since the procedure except for slight amount of chest pain. CBC/BMP: 10/08/16 0517 10/08/16 0517 Significant Findings Laboratory Tests Test 10/07/16 10/07/16 10/08/16 01:00 07:55 05:17 White Blood Count 15.1 TH/MM3 12.2 TH/MM3 11.7 TH/MM3 (4.0-11.0) (4.0-11.0) (4.0-11.0) Bedside Hemoglobin 17.7 G/DL (12.0-17.0) Bedside Hematocrit 52.0 % (38.0-51.0) Neutrophils (%) (Auto) 79.1 % 72.5 % (16.0-70.0) (16.0-70.0) Neutrophils # (Auto) 12.0 TH/MM3 8.8 TH/MM3 (1.8-7.7) (1.8-7.7) Monocytes # (Auto) 1.0 TH/MM3 1.0 TH/MM3 1.2 TH/MM3 (0-0.9) (0-0.9) (0-0.9) Bedside Sodium 136 MMOL/L (138-146) Bedside Glucose 201 MG/DL (60-95) Creatine Kinase MB 3.7 NG/ML (0.5-3.6) Estimat Glomerular Filtration 83 ML/MIN (>89) 79 ML/MIN (>89) Rate Random Glucose 165 MG/DL 140 MG/DL (74-106) (74-106) Hemoglobin A1c 7.2 % (4.3-6.0) Calcium Level 7.9 MG/DL (8.5-10.1) Triglycerides Level 176 MG/DL (42-150) HDL Cholesterol 34.0 MG/DL (40.0-60.0) Monocytes (%) (Auto) 10.4 % (0.0-8.0) Basophils (%) (Auto) 2.1 % (0.0-2.0) Imaging Last Impressions Chest X-Ray 10/07/16 0102 Signed Impressions: Service Date/Time: Friday, October 07, 2016 00:59 - CONCLUSION: Scarring or subsegmental atelectasis bilaterally very similar in appearance to the prior study of March 2016. No other acute cardiopulmonary disease identified. Kip Easley MD PE at Discharge Gen.: No acute distress Head: Normocephalic. Atraumatic. EENT: Pupils equal round and reactive to light. Nose without drainage. Airway intact. Throat without injection. Cardiovascular: Regular rate and rhythm. No murmurs, rubs or gallops. Respiratory: Lungs clear to auscultation bilaterally. No wheezes or rhonchi. Abdomen: Soft, nontender, nondistended. No peritoneal signs. Musculoskeletal: No gross deformities. No edema. Skin: No obvious rashes or erythema. Neuro: Sensory and motor grossly intact. Cranial nerves II through XII grossly intact. Psych: Appropriate mood and affect Pt update on day of discharge Patient reports that he is feeling great. No longer having any chest pain. No shortness of breath. He is anxious to go home. Hospital Course 56-year-old male admitted as a STEMI. The patient underwent heart: Denies a patient, thrombectomy, aspiration and angioplasty of the RCA by Dr. Cordon. In-stent thromboses was likely secondary to the patient not taking his Plavix. He was totally counseled. He was given a three-month supply of medication. He is strongly advised to follow-up outpatient and not to wait for the medications run out. The patient was also found to have diabetes. New diagnosis for the patient. He was started on metformin 500 mg twice a day. He is advised to follow-up outpatient. Other conditions treated include the following: HTN (hypertension) Plan: Continue lisinopril, metoprolol as above. CAD (coronary artery disease) Plan: Continue aspirin, Plavix, Imdur and statin. Echo with EF of 4045 percent. Tobacco abuse Plan: Patient extensively counseled to quit using tobacco. He reports that he will not smoke again. Diabetes Plan: New diagnosis per the patient. -dispersion mixer was consulted. -Patient was started on Metformin - SSI with accuchecks. He did not require any insulin. - 1800 yenny diet. Pt Condition on Discharge: Good Discharge Disposition: Discharge Home Discharge Time: <= 30 minutes Discharge Instructions DIET: Follow Instructions for: Diabetic Diet Activities you can perform: Regular-No Restrictions Follow up Referrals: Appointment for Follow Up with PCP Cardiology - 2 Weeks with Javad Cordon DO PCP Follow-up New Medications: Metformin (Glucophage) 500 Mg Tab 500 MG PO BIDPC #180 TAB Continued Medications: Aspirin (Aspirin) 81 Mg Chew 81 MG CHEW DAILY Heart #90 Ref 0 TAB (This prescription has been renewed) Atorvastatin (Atorvastatin) 80 Mg Tab 80 MG PO HS Cholesterol Management #90 Ref 0 TAB (This prescription has been renewed) Clopidogrel (Plavix) 75 Mg Tab 75 MG PO DAILY Blood Clot Prevention #90 Ref 0 TAB (This prescription has been renewed) Isosorbide Mononitrate ER (Isosorbide Mononitrate ER) 60 Mg Tab 60 MG PO DAILY Prevent Chest Pain #90 Ref 0 TAB (This prescription has been renewed) Lisinopril (Lisinopril) 5 Mg Tab 5 MG PO DAILY Blood Pressure Management #90 Ref 0 TAB (This prescription has been renewed) Metoprolol Tartrate (Metoprolol Tartrate) 25 Mg Tab 12.5 MG PO Q12HR Heart #180 TAB (This prescription has been renewed) Paroxetine (Paxil) 40 Mg Tab 40 MG PO DAILY Anxiety #30 Ref 0 TAB (This prescription has been renewed) Discontinued Medications: Cefuroxime (Ceftin) 500 Mg Tab 500 MG PO BID Infection Days 14 Ref 0 TAB Nitroglycerin SL (Nitroglycerin SL) 0.4 Mg Subl 0.4 MG SL DIRECTED ONE TABLET UNDER THE TONGUE NEEDED FOR CHEST PAIN, MAY REPEAT EVERY FIVE MINUTES FOR A TOTAL OF 3 DOSES OR CALL 911 IF NO RELIEF PRN ANGINA #100 Ref 0 TAB.SL Brant Azevedo MD Oct 09, 2016 10:13
== END 2016-10-09 11:15 | disposition home or self-care (01) | DRG 251 ==
LOC: NEPE 00:56 → NEDA 01:55 → HCVR 03:00 → HCIS 09:32
PROVIDERS: ADMIT Family Medicine; ATTEND Family Medicine
PROC: 02703ZZ Dilation of Coronary Artery, One Artery, Percutaneous Approach (ICD-10-PCS; principal; 2016-10-07)
PROC: 02C03ZZ Extirpation of Matter from Coronary Artery, One Artery, Percutaneous Approach (ICD-10-PCS; 2016-10-07)
PROC: B240ZZ3 Ultrasonography of Single Coronary Artery, Intravascular (ICD-10-PCS; 2016-10-07)
PROC: 4A023N7 Measurement of Cardiac Sampling and Pressure, Left Heart, Percutaneous Approach (ICD-10-PCS; 2016-10-07)
PROC: B2111ZZ Fluoroscopy of Multiple Coronary Arteries using Low Osmolar Contrast (ICD-10-PCS; 2016-10-07)
DX: I21.19 ST elevation (STEMI) myocardial infarction involving other coronary artery of inferior wall (principal); T82.867A Thrombosis due to cardiac prosthetic devices, implants and grafts, initial encounter; I25.10 Atherosclerotic heart disease of native coronary artery without angina pectoris; F17.210 Nicotine dependence, cigarettes, uncomplicated; E11.9 Type 2 diabetes mellitus without complications; E78.5 Hyperlipidemia, unspecified; F32.9 Major depressive disorder, single episode, unspecified; I10 Essential (primary) hypertension; Y83.1 Surgical operation with implant of artificial internal device as the cause of abnormal reaction of the patient, or of later complication, without mention of misadventure at the time of the procedure; I25.2 Old myocardial infarction; Z91.14 Patient's other noncompliance with medication regimen; Z95.5 Presence of coronary angioplasty implant and graft
CPT/HCPCS: 71010; 80048; 80061; 82310; 82435; 82550; 82552; 82565; 82947; 82948; 83036; 83735; 83880; 84132; 84295; 84484; 84520; 85002; 85025; 85610; 85730; 92941; 92978; 93005; 93306; 93454; 96361; 96374; 96375; C1725; C1753; C1757; C1769; C1887; C1893; J1644; J2250; J2270; J3010; J7030; Q9967

== ENCOUNTER 2016-11-18 17:36 | Inpatient (IN) | payer OTHER ==
[~2016-11-18 17:36] MED LIST changes: -CEFT500T3 PO; -HYDR-3580 PO; +METF500 PO; -NITR1SUB3 SL
[2016-11-18 17:47] VITALS: BP 123/69; PULSE 75; RESP 16; TEMP 98.3; O2SAT 96
--- NOTE | 2016-11-18 18:22 | RADRPT ---
EXAM DATE/TIME: 11/18/2016 18:06 [facility] COMPARISON: No previous studies available for comparison. INDICATIONS : Chest pain earlier today. MEDICAL HISTORY : Myocardial infarction. SURGICAL HISTORY : Coronary artery stent. ENCOUNTER: Initial ACUITY: 1 day PAIN SCORE: 7/10 LOCATION: middle chest. FINDINGS: Linear scarring both mid lungs. Cardiomegaly. No consolidation or effusion. Osseous structures are in tact. CONCLUSION: No acute disease. Julio Rodrigues MD on November 18, 2016 at 18:20 Board Certified Radiologist. This report was verified electronically.
[2016-11-18] MEDS ORDERED: ASPI325T PO (18:33)
[2016-11-18 18:59] LABS: AUTOMATED NEUTROPHIL # 6.4 TH/MM3 (1.8-7.7); BASOPHIL # 0.1 TH/MM3 (0-0.2); BASOPHIL % 0.7 % (0.0-2.0); EOSINOPHIL # 0.2 TH/MM3 (0-0.4); EOSINOPHIL % 2.4 % (0.0-4.0); HEMATOCRIT 44.5 % (39.0-51.0); HEMO FLAGS DIFF FINAL; LYMPH % 19.6 % (9.0-44.0); LYMPHOCYTE # 1.8 TH/MM3 (1.0-4.8); MEAN CORPUSCULAR HEMOGLOBIN 28.8 PG (27.0-34.0); MEAN CORPUSCULAR HGB CONC 32.8 % (32.0-36.0); NEUT % 68.3 % (16.0-70.0); PLATELET COUNT 169 TH/MM3 (150-450); RED BLOOD COUNT 5.06 MIL/MM3 (4.50-5.90); RED CELL DISTRIBUTION WIDTH 14.5 % (11.6-17.2); WHITE BLOOD COUNT 9.3 TH/MM3 (4.0-11.0)
[2016-11-18 19:00] VITALS: BP 119/67; PULSE 67; RESP 18; O2SAT 97
--- NOTE | 2016-11-18 19:01 | PD ---
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 He states pain feels similar to previous heart attacks. Pain radiates to his left jaw and left upper extremity. Patient denies any other symptoms. Denies any shortness of breath, nausea, vomiting, diaphoresis, headache, or back pain. Patient reports his last stent was placed a month ago but does not see a bag checker outside the hospital. Patient reports that he is taking his Plavix and a full-strength aspirin which he took today. Pain resolved after receiving one dose of nitroglycerin by EMS en route. PFSH Past Medical History Hx Anticoagulant Therapy: Yes (PLAVIX AND 325 MG ASPRIN ) Arthritis: No Asthma: No Autoimmune Disease: No Blood Disorders: No Anxiety: Yes Depression: No Heart Rhythm Problems: No Cancer: No Cardiac Catheterization: Yes (STENT 05/2014) Cardiovascular Problems: Yes (HTN, [place]) High Cholesterol: Yes Chemotherapy: No Chest Pain: Yes Congestive Heart Failure: No COPD: No Cerebrovascular Accident: No Coronary Artery Disease: Yes Diabetes: Yes Patient Takes Glucophage: No Diminished Hearing: No Endocrine: No GERD: Yes Glaucoma: No Genitourinary: No Headaches: No Hepatitis: No Hypertension: Yes Immune Disorder: No Kidney Stones: No Musculoskeletal: No Neurologic: No Psychiatric: Yes Reproductive: No Respiratory: Yes Immunizations Current: Yes Migraines: No Myocardial Infarction: Yes (04/2013, 09/2016) Radiation Therapy: No Renal Failure: No Seizures: No Sickle Cell Disease: No Sleep Apnea: No Thyroid Disease: No Ulcer: No Past Surgical History Abdominal Surgery: No AICD: No Appendectomy: No Arteriovenous Shunt: No Body Medical Devices: STENTS Cardiac Surgery: Yes (STENTS X 12) Cholecystectomy: No Coronary Stent: Yes (X12) Ear Surgery: No Endocrine Surgery: No Eye Surgery: No Genitourinary Surgery: No Gynecologic Surgery: No Insulin Pump: No Joint Replacement: No Oral Surgery: No Pacemaker: No Thoracic Surgery: No Tonsillectomy: Yes Other Surgery: Yes (CATH WITH STENTS) Social History Alcohol Use: Yes (ONCE WEEKLY) Tobacco Use: Yes (1/2 PPD) Substance Use: Yes (YEARS AGO - WEED) Allergies-Medications (Allergen,Severity, Reaction): Coded Allergies: No Known Allergies (Verified , 11/18/16) Reported Meds & Prescriptions Reported Meds & Active Scripts Active Glucophage (Metformin HCl) 500 Mg Tab 500 Mg PO BIDPC Metoprolol Tartrate 25 Mg Tab 12.5 Mg PO Q12HR Paxil (Paroxetine HCl) 40 Mg Tab 40 Mg PO DAILY Lisinopril 5 Mg Tab 5 Mg PO DAILY Isosorbide Mononitrate ER (Isosorbide Mononitrate) 60 Mg Tab 60 Mg PO DAILY Plavix (Clopidogrel Bisulfate) 75 Mg Tab 75 Mg PO DAILY Atorvastatin (Atorvastatin Calcium) 80 Mg Tab 80 Mg PO HS Reported Aspirin 325 Mg Tab 325 Mg PO DAILY Review of Systems Except as stated in HPI: all other systems reviewed are Neg Physical Exam Narrative GENERAL: Well-developed, overly nourished, in no acute distress, and non-ill appearing. SKIN: Focused skin assessment warm and dry. HEAD: Atraumatic. Normocephalic. EYES: Pupils equal and round. EOMI. No scleral icterus. No injection or drainage. ENT: No nasal bleeding or discharge. Mucous membranes pink and moist. NECK: Trachea midline. No JVD. Supple. No nuclear rigidity. CARDIOVASCULAR: Regular rate and rhythm. No murmur appreciated. RESPIRATORY: No accessory muscle use. No respiratory distress. Clear to auscultation. Breath sounds equal bilaterally. MUSCULOSKELETAL: No obvious deformities. No clubbing. No cyanosis. No edema. Full range of motion. NEUROLOGICAL: Awake and alert. No obvious cranial nerve deficits. Motor grossly within normal limits. Normal speech. PSYCHIATRIC: Appropriate mood and affect; insight and judgment normal. Data Data Last Documented VS Vital Signs Date Time Temp Pulse Resp B/P Pulse Ox O2 Delivery O2 Flow Rate FiO2 11/18/16 19:00 67 18 119/67 97 Room Air 11/18/16 17:47 98.3 Orders Electrocardiogram (11/18/16 17:51) Complete Blood Count With Diff (11/18/16 17:51) Basic Metabolic Panel (Bmp) (11/18/16 17:51) Ckmb (Isoenzyme) Profile (11/18/16 17:51) Troponin I (11/18/16 17:51) Chest, Single Ap (11/18/16 17:51) Iv Access Insert/Monitor (11/18/16 17:51) Ecg Monitoring (11/18/16 17:51) Oxygen Administration (11/18/16 17:51) Oximetry (11/18/16 17:51) Magnesium (Mg) (11/18/16 18:59) Prothrombin Time / Inr (Pt) (11/18/16 18:59) Act Partial Throm Time (Ptt) (11/18/16 18:59) Admit Order (Ed Use Only) (11/18/16 19:34) Activity Bed Rest With Brp (11/18/16 19:34) Vital Signs (Adult) Q4H (11/18/16 19:34) Cardiac Rhythm .As Directed (11/18/16 19:34) Notify Dr: Other .PRN (11/18/16 19:34) Notify Dr. Parameters (11/18/16 19:34) Resp Oxygen Nasal Cannula (11/18/16 ) Ckmb (Isoenzyme) Profile (11/18/16 21:20) Ckmb (Isoenzyme) Profile (11/19/16 00:20) Troponin I (11/18/16 21:20) Troponin I (11/19/16 00:20) Electrocardiogram (11/18/16 21:20) Electrocardiogram (11/19/16 00:20) ^ Obtain (11/18/16 19:34) Sodium Chloride 0.9% Flush (Ns Flush) (11/18/16 19:45) Eye Dropper Assembler / Telemetry MANUEL.Q8H (11/18/16 19:34) Labs Laboratory Tests Test 11/18/16 18:20 White Blood Count 9.3 TH/MM3 Red Blood Count 5.06 MIL/MM3 Hemoglobin 14.6 GM/DL Hematocrit 44.5 % Mean Corpuscular Volume 88.0 FL Mean Corpuscular Hemoglobin 28.8 PG Mean Corpuscular Hemoglobin 32.8 % Concent Red Cell Distribution Width 14.5 % Platelet Count 169 TH/MM3 Mean Platelet Volume 10.6 FL Neutrophils (%) (Auto) 68.3 % Lymphocytes (%) (Auto) 19.6 % Monocytes (%) (Auto) 9.0 % Eosinophils (%) (Auto) 2.4 % Basophils (%) (Auto) 0.7 % Neutrophils # (Auto) 6.4 TH/MM3 Lymphocytes # (Auto) 1.8 TH/MM3 Monocytes # (Auto) 0.8 TH/MM3 Eosinophils # (Auto) 0.2 TH/MM3 Basophils # (Auto) 0.1 TH/MM3 CBC Comment DIFF FINAL Differential Comment Prothrombin Time 10.2 SEC Prothromb Time International 0.9 RATIO Ratio Activated Partial 23.7 SEC Thromboplast Time Sodium Level 142 MEQ/L Potassium Level 4.0 MEQ/L Chloride Level 109 MEQ/L Carbon Dioxide Level 24.7 MEQ/L Anion Gap 8 MEQ/L Blood Urea Nitrogen 20 MG/DL Creatinine 1.19 MG/DL Estimat Glomerular Filtration 63 ML/MIN Rate Random Glucose 143 MG/DL Calcium Level 8.9 MG/DL Magnesium Level 2.3 MG/DL Total Creatine Kinase 85 U/L Troponin I 0.04 NG/ML MDM Medical Decision Making Medical Screen Exam Complete: Yes Emergency Medical Condition: Yes Interpretation(s) EKG reviewed by Dr. Boggs shows sinus rhythm with ventricular rate of 77. No STEMI. Differential Diagnosis Acute coronary syndrome, unstable angina, angina, like Britney abnormality, Narrative Course Patient was seen and examined. Initial Laboratory and radiological studies were obtained and reviewed. Discussed patient with Dr. Ang, who saw and evaluated the patient in recommends patient be placed into the chest pain center for further treatment and evaluation. Discussed all findings and plan care of patient who is agreeable for admission. All questions were answered. Diagnosis Primary Impression: Chest pain, rule out acute myocardial infarction Admitting Information Admitting Physician Requests: Observation Condition: Stable Jorge Rogel Nov 18, 2016 19:01
[2016-11-18 19:15] LABS: BICARBONATE 24.7 MEQ/L (21.0-32.0)
--- NOTE | 2016-11-18 19:18 | PD ---
Data Data Last Documented VS Vital Signs Date Time Temp Pulse Resp B/P Pulse Ox O2 Delivery O2 Flow Rate FiO2 11/18/16 19:00 67 18 119/67 97 Room Air 11/18/16 17:47 98.3 Orders Electrocardiogram (11/18/16 17:51) Complete Blood Count With Diff (11/18/16 17:51) Basic Metabolic Panel (Bmp) (11/18/16 17:51) Ckmb (Isoenzyme) Profile (11/18/16 17:51) Troponin I (11/18/16 17:51) Chest, Single Ap (11/18/16 17:51) Iv Access Insert/Monitor (11/18/16 17:51) Ecg Monitoring (11/18/16 17:51) Oxygen Administration (11/18/16 17:51) Oximetry (11/18/16 17:51) Magnesium (Mg) (11/18/16 18:59) Prothrombin Time / Inr (Pt) (11/18/16 18:59) Act Partial Throm Time (Ptt) (11/18/16 18:59) Admit Order (Ed Use Only) (11/18/16 19:34) Activity Bed Rest With Brp (11/18/16 19:34) Vital Signs (Adult) Q4H (11/18/16 19:34) Cardiac Rhythm .As Directed (11/18/16 19:34) Notify Dr: Other .PRN (11/18/16 19:34) Notify Parameters (11/18/16 19:34) Resp Oxygen Nasal Cannula (11/18/16 ) Ckmb (Isoenzyme) Profile (11/18/16 21:20) Ckmb (Isoenzyme) Profile (11/19/16 00:20) Troponin I (11/18/16 21:20) Troponin I (11/19/16 00:20) Electrocardiogram (11/18/16 21:20) Electrocardiogram (11/19/16 00:20) ^ Obtain (11/18/16 19:34) Sodium Chloride 0.9% Flush (Ns Flush) (11/18/16 19:45) Pesticide Chemist / Telemetry MANUEL.Q8H (11/18/16 19:34) Labs Laboratory Tests Test 11/18/16 18:20 White Blood Count 9.3 TH/MM3 Red Blood Count 5.06 MIL/MM3 Hemoglobin 14.6 GM/DL Hematocrit 44.5 % Mean Corpuscular Volume 88.0 FL Mean Corpuscular Hemoglobin 28.8 PG Mean Corpuscular Hemoglobin 32.8 % Concent Red Cell Distribution Width 14.5 % Platelet Count 169 TH/MM3 Mean Platelet Volume 10.6 FL Neutrophils (%) (Auto) 68.3 % Lymphocytes (%) (Auto) 19.6 % Monocytes (%) (Auto) 9.0 % Eosinophils (%) (Auto) 2.4 % Basophils (%) (Auto) 0.7 % Neutrophils # (Auto) 6.4 TH/MM3 Lymphocytes # (Auto) 1.8 TH/MM3 Monocytes # (Auto) 0.8 TH/MM3 Eosinophils # (Auto) 0.2 TH/MM3 Basophils # (Auto) 0.1 TH/MM3 CBC Comment DIFF FINAL Differential Comment Prothrombin Time 10.2 SEC Prothromb Time International 0.9 RATIO Ratio Activated Partial 23.7 SEC Thromboplast Time Sodium Level 142 MEQ/L Potassium Level 4.0 MEQ/L Chloride Level 109 MEQ/L Carbon Dioxide Level 24.7 MEQ/L Anion Gap 8 MEQ/L Blood Urea Nitrogen 20 MG/DL Creatinine 1.19 MG/DL Estimat Glomerular Filtration 63 ML/MIN Rate Random Glucose 143 MG/DL Calcium Level 8.9 MG/DL Magnesium Level 2.3 MG/DL Total Creatine Kinase 85 U/L Troponin I 0.04 NG/ML [facility] Medical Record Reviewed: Yes Supervised Visit with VANE: Yes Narrative Course I, Dr. Ang, have reviewed the advance practice practitioner's documentation and am in agreement, met with the patient face to face, made the diagnosis, and the medical decision making was done by me. The patient was initially seen by Jorge. Please see his complete history and physical. 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 He reports that he felt overwhelmed by some fumes. He reports that he developed an aching sensation in the center of his chest that radiated up into his jaw. He denies having any shortness of breath with it. He does however report having diaphoresis and nausea. His symptoms are similar to symptoms related to a heart attack that he had a month ago. The patient reports that he did take his aspirin today as well as his Plavix. The patient received a single nitroglycerin and reports that the chest pain has completely resolved. Laboratory studies were done. The patient's initial set of cardiac enzymes were negative. However, given the patient's history of coronary artery disease , recent STEMI, and typical symptoms patient will be admitted to the chest pain center for rule out serial cardiac enzyme protocol. The patient was agreeable with this plan. Diagnosis Primary Impression: Chest pain, rule out acute myocardial infarction Admitting Information Admitting Physician Requests: Jayna Ragland MD Nov 18, 2016 19:18
[2016-11-18 19:20] LABS: APTT (PATIENT) 23.7 SEC (24.3-30.1); INTERNATIONAL NORMALIZED RATIO 0.9 RATIO; PROTHROMBIN TIME - PATIENT 10.2 SEC (9.8-11.6)
[2016-11-18] MEDS ORDERED: SODIUM CHLORIDE 0.9% FLUSH 10 ML FLUSH IV FLUSH PRN (19:45)
[2016-11-18 20:55] VITALS: BP 126/71; PULSE 64; RESP 18; TEMP 98; O2SAT 97
[2016-11-18 21:39] VITALS: PULSE 80
[2016-11-18 21:40] VITALS: PULSE 80
[2016-11-18] MEDS ORDERED: NITROGLYCERIN 0.4 MG SL 25 TABS/BTL SL PRN (23:45)
[2016-11-18 23:53] VITALS: PULSE 68
[2016-11-19] VITALS (11 sets, daily range): BP systolic 119–130; BP diastolic 65–87; PULSE 52–87; RESP 18–21; TEMP 97.9–98.4; O2SAT 96–99
[2016-11-19] MEDS ORDERED: PILL SPLITTER OTHER PRN (08:00)
--- NOTE | 2016-11-19 08:40 | EKG ---
Date Performed: 11/19/2016 Time Performed: 00:47:02 PTAGE: 56 years EKG: Sinus rhythm INFERIOR MYOCARDIAL INFARCTION NONSPECIFIC LATERAL ST/T CHANGES ABNORMAL ECG PREVIOUS TRACING : 11/18/2016 22.58 No significant change from previous tracing noted. DOCTOR: Michi Abdi Interpretating Date/Time 11/19/2016 08:39:01
--- NOTE | 2016-11-19 08:42 | EKG ---
Date Performed: 11/18/2016 Time Performed: 22:58:04 PTAGE: 56 years EKG: Sinus rhythm POSSIBLE LATERAL MYOCARDIAL INFARCTION INFERIOR MYOCARDIAL INFARCTION ABNORMAL ECG PREVIOUS TRACING : 11/18/2016 17.59 No significant change from previous tracing noted. DOCTOR: Michi Abdi Interpretating Date/Time 11/19/2016 08:40:03
[2016-11-19] MEDS ORDERED: HEPARIN-NS/PF INJ 500 ML ONE (08:53)
--- NOTE | 2016-11-19 08:55 | EKG ---
Date Performed: 11/18/2016 Time Performed: 17:59:09 PTAGE: 56 years EKG: Sinus rhythm POSSIBLE LATERAL MYOCARDIAL INFARCTION INFERIOR MYOCARDIAL INFARCTION ABNORMAL ECG PREVIOUS TRACING : 10/07/2016 00.58 Compared to previous tracing, inferior ST elevation and ant erior St depression have resolved. DOCTOR: Michi Abdi Interpretating Date/Time 11/19/2016 08:52:32
[2016-11-19] MEDS: ASPIRIN 325 MG TAB PO SCH (09:00)
[2016-11-19] MEDS: ISOSORBIDE MONONITRATE 60 MG TAB PO SCH (09:00)
[2016-11-19] MEDS: CLOPIDOGREL 75 MG TAB PO SCH (09:00)
[2016-11-19] MEDS ORDERED: LISINOPRIL 5 MG TAB PO SCH (09:00)
[2016-11-19] MEDS: METOPROLOL TARTRATE 25 MG TAB PO SCH ×2 (09:00→21:00)
[2016-11-19] MEDS: PARoxetine HCL 20 MG TAB PO SCH (09:00)
[2016-11-19] MEDS ORDERED: SODIUM CHLOR 0.9% 1000 ML INJ 1,000 ML IV SCH (09:00)
--- NOTE | 2016-11-19 09:07 | HHI.HP ---
[facility] Primary Care Physician Sridhar Jang MD Chief Complaint Chest pain History of Present Illness This is a 56-year-old male with history of CAD that presents to ED via E VAC to evaluate chest discomfort. He estimates that he has had approximately 13 or 14 stents. He was a STEMI alert September of this year and a non-STEMI alert March last year. No stenting during the STEMI. He states that he has had a burning discomfort that radiated from the left side his chest into the left jaw and down his left arm. He called 911 immediately and they arrived within 10 minutes. They gave him a sublingual nitroglycerin which resolved his discomfort quickly. It has not recurred. He states that his angina is always the same feeling and had the same symptoms yesterday. He also was nauseous diaphoretic and short of breath with the symptoms. Voices compliance with all medications. States he still unable to follow-up with an outpatient acid regenerator secondary to insurance issues. Review of Systems General: Patient denies fevers, chills recent, and recent travel HEENT: Patient denies headache, sore throat, difficulty swallowing. Cardiovascular: Has the chest discomfort as mentioned above. Denies sensation of heart beating rapidly or irregularly. No syncope. There was diaphoresis. Respiratory: He was short of breath. Denies inspirational chest discomfort. Denies coughing wheezing or hemoptysis. GI: He was nauseous. Patient denies vomiting, diarrhea, abdominal pain, bloody stools. Musculoskeletal: Patient denies joint pain or edema. Denies calf pain or edema. Neurovascular: Patient denies numbness, tingling, weakness in extremities. Denies headache. Endocrine: Denies polyuria and polydipsia. Hematologic: Denies easy bruising. Skin: Denies rash or itching. Past Family Social History Allergies: Coded Allergies: No Known Allergies (Verified , 11/18/16) Past Medical History CAD with multiple stents. Hypertension, hyperlipidemia, diabetes, continued tobacco abuse. Past Surgical History Multiple cardiac catheterizations. Reported Medications Reported Meds & Active Scripts Active Glucophage (Metformin HCl) 500 Mg Tab 500 Mg PO BIDPC Metoprolol Tartrate 25 Mg Tab 12.5 Mg PO Q12HR Paxil (Paroxetine HCl) 40 Mg Tab 40 Mg PO DAILY Lisinopril 5 Mg Tab 5 Mg PO DAILY Isosorbide Mononitrate ER (Isosorbide Mononitrate) 60 Mg Tab 60 Mg PO DAILY Plavix (Clopidogrel Bisulfate) 75 Mg Tab 75 Mg PO DAILY Atorvastatin (Atorvastatin Calcium) 80 Mg Tab 80 Mg PO HS Reported Aspirin 325 Mg Tab 325 Mg PO DAILY Active Ordered Medications Current Medications Medications (Trade) Dose Ordered Sig/Dima Route Start Time Stop Time Status Last Admin (NS Flush) 2 ml UNSCH PRN IV FLUSH 11/18/16 19:45 (Nitrostat Sl) 0.4 mg Q5M PRN SL 11/18/16 23:45 (Aspirin) 325 mg DAILY PO 11/19/16 09:00 (Lipitor) 80 mg HS PO 11/19/16 21:00 (Plavix) 75 mg DAILY PO 11/19/16 09:00 (Imdur) 60 mg DAILY PO 11/19/16 09:00 (Prinivil) 5 mg DAILY PO 11/19/16 09:00 (Lopressor) 12.5 mg Q12HR PO 11/19/16 09:00 (Paxil) 40 mg DAILY PO 11/19/16 09:00 Miscellaneous 1 ea 1 ea UNSCH PRN OTHER 11/19/16 08:00 (NS 1000 ml Inj) 1,000 ml @ 100 mls/hr Q10H IV 11/19/16 09:00 11/19/16 18:59 Family History There is family history of CAD. Social History Patient continues to smoke cigarettes. He is smoking about one half pack of cigarettes daily for 2 years. Prior that he smoked 1-1/2 pack of cigarettes daily for 30 years. Has occasional alcohol. Denies illicit drugs. He lives alone. Physical Exam Vital Signs Vital Signs Date Time Temp Pulse Resp B/P Pulse Ox O2 Delivery O2 Flow Rate FiO2 11/19/16 08:08 98.4 74 21 119/73 99 11/19/16 07:36 52 11/19/16 03:37 98.2 62 18 120/65 96 11/18/16 23:53 68 11/18/16 21:40 80 11/18/16 21:39 80 11/18/16 20:55 98.0 64 18 126/71 97 11/18/16 19:00 67 18 119/67 97 Room Air 11/18/16 17:47 98.3 75 16 123/69 96 Physical Exam GENERAL: This is a well-nourished, well-developed patient, in no apparent distress. Patient speaks in clear complete sentences. Patient is pleasant. HEENT: Head is atraumatic and normocephalic. Neck is supple without lymphadenopathy and trachea is midline. No JVD or carotid bruits. CARDIOVASCULAR: Regular rate and rhythm without murmurs, gallops, or rubs. RESPIRATORY: Clear to auscultation. Breath sounds equal bilaterally. No wheezes , rales, or rhonchi. Chest wall is nontender. No use of accessory muscles. GASTROINTESTINAL: Abdomen is nontender, nondistended. Abdomen soft. No obvious pulsatile mass or bruit. No CVA tenderness. Strong femoral pulses bilaterally. Normal bowel sounds in all quadrants. MUSCULOSKELETAL: Patient is moving upper and lower extremities freely. No calf tenderness or edema, no Homans sign. Strong pulses in upper and lower extremities. NEUROLOGICAL: Patient is alert and oriented. Cranial nerves 2-12 are grossly intact. No focal deficits and speech is clear. SKIN: No rash and turgor is normal. Laboratory Laboratory Tests Test 11/18/16 11/18/16 11/19/16 18:20 21:40 00:30 White Blood Count 9.3 Red Blood Count 5.06 Hemoglobin 14.6 Hematocrit 44.5 Mean Corpuscular Volume 88.0 Mean Corpuscular Hemoglobin 28.8 Mean Corpuscular Hemoglobin 32.8 Concent Red Cell Distribution Width 14.5 Platelet Count 169 Mean Platelet Volume 10.6 Neutrophils (%) (Auto) 68.3 Lymphocytes (%) (Auto) 19.6 Monocytes (%) (Auto) 9.0 Eosinophils (%) (Auto) 2.4 Basophils (%) (Auto) 0.7 Neutrophils # (Auto) 6.4 Lymphocytes # (Auto) 1.8 Monocytes # (Auto) 0.8 Eosinophils # (Auto) 0.2 Basophils # (Auto) 0.1 CBC Comment DIFF FINAL Differential Comment Prothrombin Time 10.2 Prothromb Time International 0.9 Ratio Activated Partial 23.7 Thromboplast Time Sodium Level 142 Potassium Level 4.0 Chloride Level 109 Carbon Dioxide Level 24.7 Anion Gap 8 Blood Urea Nitrogen 20 Creatinine 1.19 Estimat Glomerular Filtration 63 Rate Random Glucose 143 Calcium Level 8.9 Magnesium Level 2.3 Total Creatine Kinase 85 80 78 Troponin I 0.04 0.12 0.14 Result Diagram: 11/18/16 1820 11/18/16 1820 Imaging Last 24 hours Impressions Chest X-Ray 11/18/16 1751 Signed Impressions: Service Date/Time: Friday, November 18, 2016 18:06 - CONCLUSION: No acute disease. Julio Rodrigues MD Course EKGs a sinus rhythm with nonspecific lateral ST-T changes. Assessment and Plan Assessment and Plan * Non-STEMI: Patient had elevated cardiac enzymes. He was seen by Dr. Mack cardiology and the chest pain center and will be having a cardiac catheterization. He'll be transferred to 's service of [facility]. Dr. Mack will be consulted. * History of CAD: This will be reassessed with the heart catheterization. * Hypertension: Continue current medication. * Hyperlipidemia: Continue current medication. * Diabetes: We'll hold his medicine at this time and he will have sliding scale insulin coverage. After being cleared he'll follow diabetic diet and resume his medication. * Tobacco abuse: Patient was counseled on the importance of smoking cessation. Patient is agreeable to this plan. William Dia Nov 19, 2016 09:07
[2016-11-19] MEDS: FUROSEMIDE 40 MG TAB PO SCH (10:00)
[2016-11-19] MEDS: POTASSIUM CHLORIDE 20 MEQ CONTROLLED RELEASE TAB PO SCH (10:15)
[2016-11-19 10:34] LABS: HDL CHOLESTEROL 30.7 MG/DL (40.0-60.0)
--- NOTE | 2016-11-19 11:10 | MA ---
cc: VIKASH ACOSTA MD DATE 11/19/2016 INDICATION Non-ST elevation MD. PROCEDURE Left eye catheterization, selective coronary angiography, left ventriculography. DETAILS OF PROCEDURE The patient gave informed consent. He was prepped in the usual sterile fashion. Subcutaneous injection of lidocaine was made in the right inguinal area. Access was achieved in the right femoral artery and angiogram was obtained after the sheath was inserted. A JL-4 and 3D-RC were utilized to engage left and right coronary arteries. Angiograms were obtained in multiple views and projections. An angled 4-Burmese pigtail catheter was utilized for the left ventriculogram. The patient remained stable and pain-free. At the end of the case the sheath was removed. FINDINGS LEFT VENTRICULOGRAM - This shows an EF of about 20%. There is global hypokinesis but it is akinetic in the inferior wall. Left ventricular pressure 131/30 mmHg. Aortic pressure 135/75 mmHg. CORONARY ANATOMY LEFT MAIN - This vessel has an ostial 20% stenosis. It gives rise to LAD, circumflex and ramus. LAD - This vessel has a proximal stent that has mild in-stent restenosis of about 20%. The vessel appears to be essentially occluded in the mid to distal portion. There are two small diagonals about 0.5-mm that have some ostial disease of about 90%. These are far too small for revascularization. RAMUS - This is a moderate-sized vessel of about 1.5 to perhaps 2.0. It has diffuse mild luminal irregularities. CIRCUMFLEX - This vessel has mild luminal irregularities proximally, followed by a 40-50% stenosis. It is about a 1.5-mm vessel, then is occluded in the mid-portion. RCA - This vessel has a patent proximal stent. The vessel has diffuse mild disease. It gives rise to a PLV and PDA which also have mild luminal irregularities. The PDA does have stents which are patent. CONCLUSIONS 1. Patent proximal RCA and LAD stents. 2. Severe diffuse distal disease that is not revascularizable. 3. Severe LV impairment - The patient is nearly at the 45 days after his MD. Thus at this point I am going to request a consult by EP to evaluate for an ICD as he has been on appropriate medical therapy that includes Coreg and lisinopril. 4. His coronary disease will be medically managed as it is not revascularizable. Robles Negrete/LYNDA /9:33 AM /10:[address] [facility] PARTNERSLesly
--- NOTE | 2016-11-19 11:52 | HHI.PR ---
Subjective Remarks s/p cardiac cath today. now resting comfortably with no distress. denies chest pain or sob. Objective Vitals Vital Signs Date Time Temp Pulse Resp B/P Pulse Ox O2 Delivery O2 Flow Rate FiO2 11/19/16 09:48 100 Room Air 11/19/16 08:10 98 21 11/19/16 08:08 98.4 74 21 119/73 99 11/19/16 07:36 52 11/19/16 03:37 98.2 62 18 120/65 96 11/18/16 23:53 68 11/18/16 21:40 80 11/18/16 21:39 80 11/18/16 20:55 98.0 64 18 126/71 97 11/18/16 19:00 67 18 119/67 97 Room Air 11/18/16 17:47 98.3 75 16 123/69 96 I/O 11/18/16 11/18/16 11/18/16 11/19/16 11/19/16 11/19/16 07:00 15:00 23:00 07:00 15:00 23:00 Intake Total 400 ml Balance 400 ml Intake Oral 400 ml Result Diagram: 11/18/16 1820 11/18/16 182 Imaging Last Impressions Chest X-Ray 11/18/16 175 Signed Impressions: Service Date/Time: Friday, November 18, 2016 18:06 - CONCLUSION: No acute disease. Julio Rodrigues MD Objective Remarks GENERAL: This is a well-nourished, well-developed patient, in no apparent distress. CARDIOVASCULAR: Regular rate and regular rhythm without murmurs, gallops, or rubs. RESPIRATORY: Clear to auscultation. Breath sounds equal bilaterally. No wheezes , rales, or rhonchi. GASTROINTESTINAL: Abdomen soft, non-tender, nondistended. Normal, active bowel sounds MUSCULOSKELETAL: Extremities without clubbing, cyanosis, or edema. NEURO: Alert & Oriented x4 to person, place, time, situation. Moves all ext x4 Procedures cardiac catheterization Medications and IVs Current Medications Sodium Chloride (NS Flush) 2 ml UNSCH PRN IV FLUSH FLUSH AFTER USING IV ACCESS ; Start 11/18/16 at 19:45 Nitroglycerin (Nitrostat Sl) 0.4 mg Q5M PRN SL SEE DOSE INSTRUCTIONS; Start at 23:45 Aspirin (Aspirin) 325 mg DAILY PO Last administered on 11/19/16 09:00; Start 11/19/16 at 09:00 Atorvastatin Calcium (Lipitor) 80 mg HS PO ; Start 11/19/16 at 21:00 Clopidogrel Bisulfate (Plavix) 75 mg DAILY PO Last administered on 11/19/16 09 :00; Start 11/19/16 at 09:00 Isosorbide Mononitrate (Imdur) 60 mg DAILY PO Last administered on 11/19/16 09 :00; Start 11/19/16 at 09:00 Lisinopril (Prinivil) 5 mg DAILY PO Last administered on 11/19/16 09:00; Start 11/19/16 at 09:00 Metoprolol Tartrate (Lopressor) 12.5 mg Q12HR PO ; Start 11/19/16 at 09:00 Paroxetine HCl (Paxil) 40 mg DAILY PO Last administered on 11/19/16 09:00; Start 11/19/16 at 09:00 Miscellaneous 1 ea 1 ea UNSCH PRN OTHER SEE LABEL COMMENTS; Start 11/19/16 at 08:00 Sodium Chloride 1,000 ml @ 100 mls/hr Q10H IV ; Start 11/19/16 at 09:00; Stop 11/19/16 at 18:59 Heparin Sodium/ Sodium Chloride (Heparin-NS/Pf Inj) 500 ml @ As Directed STK- MED ONCE .ROUTE ; Start 11/19/16 at 08:53; Stop 11/19/16 at 08:54; Status DC Fentanyl Citrate (fentaNYL INJ) 100 mcg STK-MED ONCE .ROUTE Last administered on 11/19/16 09:02; Start 11/19/16 at 08:54; Stop 11/19/16 at 08:55; Status DC Miscellaneous Information 1 ONCE ONCE XX ; Start 11/20/16 at 09:00; Stop at 09:01 Furosemide (Lasix) 40 mg DAILY PO Last administered on 11/19/16 10:00; Start 11/19/16 at 10:00 Potassium Chloride (KCl) 20 meq DAILY PO Last administered on 11/19/16 10:15; Start 11/19/16 at 10:15 A/P Assessment and Plan A/P - NSTEMI s/p cardiac cath with: 1. Patent proximal RCA and LAD stents. 2. Severe diffuse distal disease that is not revascularizable. 3. Severe LV impairment medical management per cardiology; continue aspirin,plavix,lisinopril,imdur and metoprolol and lipitor. cardiology following. -ischemic cardiomyopathy continue lasix- consulted for AICD placement. -diabetes mellitus- metformin on hold- accu-check with SSI. -DVT prophylaxis with SCD's Dian Murcia MD Nov 19, 2016 11:52
[2016-11-19] MEDS ORDERED: GLUCAGON 1 MG/ML VIAL OTHER PRN (12:00)
[2016-11-19] MEDS ORDERED: DEXTROSE 50% IN WATER 50 ML VIAL(D50) IV PUSH PRN (12:00)
[2016-11-19] MEDS: INSULIN ASPART SUPPLEMENTAL SCALE SQ SCH ×2 (16:39→21:00)
[2016-11-19] MEDS: ATORVASTATIN 80 MG TAB PO SCH (21:00)
--- NOTE | 2016-11-19 23:58 | MB ---
cc: MICHAEL MUELLER M.D. DATE OF CONSULTATION: 11/19/2016 REASON FOR CONSULTATION: Congestive heart failure, electrophysiology study and defibrillator implantation. HISTORY OF PRESENT ILLNESS: Mr. Lewis is a 56 year-old gentleman with history of coronary artery disease, previous myocardial infarction, recent left heart catheterization by Dr. Mack who indicated no need for revascularization or with ejection fraction around 20% on optimal medical treatment. He was referred for evaluation for electrophysiology study and defibrillator implantation. The chart was reviewed. The patient was evaluated. ALLERGIES: None. SOCIAL HISTORY: The gentleman currently denies smoking and drinking. FAMILY HISTORY Noncontributory to his current medical condition. MEDICATIONS 1. Glucophage 500 mg twice a day. 2. Metoprolol. 3. Paxil 4. Lisinopril 5. Imdur 6. Plavix. 7. Atorvastatin 8. Aspirin REVIEW OF SYSTEMS He refers no chest pain, shortness of breath but no vomiting. No fever. PHYSICAL EXAMINATION: Alert, fully oriented. His blood pressure is 130/69, pulse 87. Respiratory rate 18. LUNGS: Ventilated. CARDIOVASCULAR: S1-S2. No gallop, no murmur. ABDOMEN: Soft, no masses, no bruits. EXTREMITIES: No edema. Electrocardiogram: Sinus rhythm. Inferior Q-wave, diffuse ST changes. LABORATORY DATA: Hemoglobin 14.6, white blood cell 9.3, potassium 4.0, creatinine 1.19. INR was 0.9. ASSESSMENT AND RECOMMENDATION: Mr. Lewis is stable. He has a low ejection fraction. He is on medical management for over three months. His previous ischemic episode was over 45 days. Electrophysiology study and defibrillator discussed. The risks, the nature and the benefit of the procedure are clearly stated to him. Risks include pneumothorax, cardiac perforation, stroke and even . He understands and agrees to proceed. The procedure will be performed during hospitalization. Michael Mueller MD /JENISE /10:36 PM /11:50 PM
[2016-11-20] VITALS (27 sets, daily range): BP systolic 106–132; BP diastolic 69–84; PULSE 50–71; RESP 16–18; TEMP 97.7–98.5; O2SAT 97–98
[2016-11-20] MEDS ORDERED: METOPROLOL TARTRATE 25 MG TAB PO SCH (04:00)
[2016-11-20] MEDS: METOPROLOL TARTRATE 25 MG TAB PO SCH ×3 (06:00→17:36)
[2016-11-20] MEDS: INSULIN ASPART SUPPLEMENTAL SCALE SQ SCH ×4 (07:00→21:30)
--- NOTE | 2016-11-20 07:39 | PD.CARD.PN ---
Subjective Subjective Remarks Pt without complaints Objective Medications Current Medications Medications (Trade) Dose Ordered Sig/Dima Route Start Time Stop Time Status Last Admin (NS Flush) 2 ml UNSCH PRN IV FLUSH 11/18/16 19:45 (Nitrostat Sl) 0.4 mg Q5M PRN SL 11/18/16 23:45 (Aspirin) 325 mg DAILY PO 11/19/16 09:00 11/19/16 09:00 (Lipitor) 80 mg HS PO 11/19/16 21:00 11/19/16 21:00 (Plavix) 75 mg DAILY PO 11/19/16 09:00 11/19/16 09:00 (Imdur) 60 mg DAILY PO 11/19/16 09:00 11/19/16 09:00 (Paxil) 40 mg DAILY PO 11/19/16 09:00 11/19/16 09:00 (Pill Splitter) 1 ea UNSCH PRN OTHER 11/19/16 08:00 Miscellaneous Information 1 ONCE ONCE XX 11/20/16 09:00 11/20/16 09:01 (Lasix) 40 mg DAILY PO 11/19/16 10:00 11/19/16 10:00 (KCl) 20 meq DAILY PO 11/19/16 10:15 11/19/16 10:15 (D50w (Vial) Inj) 25 ml UNSCH PRN IV PUSH 11/19/16 12:00 (Glucagon Inj) 1 mg UNSCH PRN OTHER 11/19/16 12:00 (Prinivil) 20 mg DAILY PO 11/20/16 09:00 (Lopressor) 25 mg Q6HR PO 11/20/16 06:00 Vital Signs / I&O Vital Signs Date Time Temp Pulse Resp B/P Pulse Ox O2 Delivery O2 Flow Rate FiO2 11/20/16 06:00 56 11/20/16 05:00 50 11/20/16 04:00 50 11/20/16 03:00 98.5 50 18 120/73 11/20/16 03:00 61 11/20/16 02:00 60 11/20/16 00:00 64 11/19/16 23:00 97.9 62 18 128/83 11/19/16 23:00 62 11/19/16 22:00 64 11/19/16 21:21 21 11/19/16 21:00 58 11/19/16 20:00 58 11/19/16 19:00 97.9 58 20 127/87 11/19/16 19:00 58 11/19/16 18:12 61 11/19/16 16:31 98.0 87 18 130/69 98 11/19/16 09:48 100 Room Air 11/19/16 08:10 98 21 11/19/16 08:08 98.4 74 21 119/73 99 I/O 11/19/16 11/19/16 11/19/16 11/20/16 11/20/16 11/20/16 07:00 15:00 23:00 07:00 15:00 23:00 Intake Total 400 ml 100 ml Balance 400 ml 100 ml Intake Oral 400 ml 100 ml Physical Exam GENERAL: Well developed, well nourished. No acute distress. HEENT: Jugular venous pressure is normal. CHEST: Lungs clear to auscultation bilaterally. Unlabored respiratory effort. CARDIAC: Regular rate and rhythm without S3, S4, or murmur. ABDOMEN: Soft, nontender, no hepatosplenomegaly. Bowel sounds present. EXTREMITIES: No clubbing, cyanosis, or edema. right groin- c/d/i, no e/h 1+ dp Assessment and Plan Assessment and Plan NSTEMI- s/p cath with patent stents and diffuse distal disease that is not revascularizable -med rx, pain free today Cardiomyopathy- EF 20% appreciate EP assist for ICD\ - continue meds Smoking- asked to quit Lipids on statin available Vee England MD Nov 20, 2016 07:39
--- NOTE | 2016-11-20 08:27 | HHI.PR ---
Subjective Remarks is comfortable. no chest pain or sob. no new complaints. Objective Vitals Vital Signs Date Time Temp Pulse Resp B/P Pulse Ox O2 Delivery O2 Flow Rate FiO2 11/20/16 08:01 51 11/20/16 07:41 51 11/20/16 06:00 56 11/20/16 05:00 50 11/20/16 04:00 50 11/20/16 03:00 98.5 50 18 120/73 11/20/16 03:00 61 11/20/16 02:00 60 11/20/16 00:00 64 11/19/16 23:00 97.9 62 18 128/83 11/19/16 23:00 62 11/19/16 22:00 64 11/19/16 21:21 21 11/19/16 21:00 58 11/19/16 20:00 58 11/19/16 19:00 97.9 58 20 127/87 11/19/16 19:00 58 11/19/16 18:12 61 11/19/16 16:31 98.0 87 18 130/69 98 11/19/16 09:48 100 Room Air I/O 11/19/16 11/19/16 11/19/16 11/20/16 11/20/16 11/20/16 07:00 15:00 23:00 07:00 15:00 23:00 Intake Total 400 ml 100 ml 0 ml Balance 400 ml 100 ml 0 ml Intake Oral 400 ml 100 ml IV Total 0 ml Result Diagram: 11/18/16 1820 11/18/16 1820 Imaging Last Impressions Chest X-Ray 11/18/16 175 Signed Impressions: Service Date/Time: Friday, November 18, 2016 18:06 - CONCLUSION: No acute disease. Julio Rodrigues MD Objective Remarks GENERAL: This is a well-nourished, well-developed patient, in no apparent distress. CARDIOVASCULAR: Regular rate and regular rhythm without murmurs, gallops, or rubs. RESPIRATORY: Clear to auscultation. Breath sounds equal bilaterally. No wheezes , rales, or rhonchi. GASTROINTESTINAL: Abdomen soft, non-tender, nondistended. Normal, active bowel sounds MUSCULOSKELETAL: Extremities without clubbing, cyanosis, or edema. NEURO: Alert & Oriented x4 to person, place, time, situation. Moves all ext x4 Procedures cardiac catheterization Medications and IVs Current Medications Sodium Chloride (NS Flush) 2 ml UNSCH PRN IV FLUSH FLUSH AFTER USING IV ACCESS ; Start 11/18/16 at 19:45 Nitroglycerin (Nitrostat Sl) 0.4 mg Q5M PRN SL SEE DOSE INSTRUCTIONS; Start at 23:45 Aspirin (Aspirin) 325 mg DAILY PO Last administered on 11/19/16 09:00; Start 11/19/16 at 09:00 Atorvastatin Calcium (Lipitor) 80 mg HS PO Last administered on 11/19/16 21:00 ; Start 11/19/16 at 21:00 Clopidogrel Bisulfate (Plavix) 75 mg DAILY PO Last administered on 11/19/16 09 :00; Start 11/19/16 at 09:00 Isosorbide Mononitrate (Imdur) 60 mg DAILY PO Last administered on 11/19/16 09 :00; Start 11/19/16 at 09:00 Lisinopril (Prinivil) 5 mg DAILY PO Last administered on 11/19/16 09:00; Start 11/19/16 at 09:00; Stop 11/19/16 at 22:40; Status DC Metoprolol Tartrate (Lopressor) 12.5 mg Q12HR PO Last administered on 21:00; Start 11/19/16 at 09:00; Stop 11/19/16 at 22:40; Status DC Paroxetine HCl (Paxil) 40 mg DAILY PO Last administered on 11/19/16 09:00; Start 11/19/16 at 09:00 Miscellaneous 1 ea 1 ea UNSCH PRN OTHER SEE LABEL COMMENTS; Start 11/19/16 at 08:00 Sodium Chloride 1,000 ml @ 100 mls/hr Q10H IV ; Start 11/19/16 at 09:00; Stop 11/19/16 at 18:59; Status DC Heparin Sodium/ Sodium Chloride (Heparin-NS/Pf Inj) 500 ml @ As Directed STK- MED ONCE .ROUTE ; Start 11/19/16 at 08:53; Stop 11/19/16 at 08:54; Status DC Fentanyl Citrate (fentaNYL INJ) 100 mcg STK-MED ONCE .ROUTE Last administered on 11/19/16 09:02; Start 11/19/16 at 08:54; Stop 11/19/16 at 08:55; Status DC Miscellaneous Information 1 ONCE ONCE XX ; Start 11/20/16 at 09:00; Stop at 09:01 Furosemide (Lasix) 40 mg DAILY PO Last administered on 11/19/16 10:00; Start 11/19/16 at 10:00 Potassium Chloride (KCl) 20 meq DAILY PO Last administered on 11/19/16 10:15; Start 11/19/16 at 10:15 Dextrose (D50w (Vial) Inj) 25 ml UNSCH PRN IV PUSH HYPOGLYCEMIA-SEE COMMENTS; Start 11/19/16 at 12:00 Glucagon (Glucagon Inj) 1 mg UNSCH PRN OTHER HYPOGLYCEMIA-SEE COMMENTS; Start 11/19/16 at 12:00 Insulin Aspart (NovoLOG SUPPLEMENTAL SCALE) 1 ACHS SLIDING SCALE SQ Last administered on 11/19/16 16:39; Start 11/19/16 at 16:00 Lisinopril (Prinivil) 20 mg DAILY PO ; Start 11/20/16 at 09:00 Metoprolol Tartrate (Lopressor) 25 mg Q6HR NEB PO ; Start 11/20/16 at 04:00; Stop 11/20/16 at 04:57; Status DC Metoprolol Tartrate (Lopressor) 25 mg Q6HR PO ; Start 11/20/16 at 06:00 A/P Assessment and Plan A/P - NSTEMI s/p cardiac cath with: 1. Patent proximal RCA and LAD stents. 2. Severe diffuse distal disease that is not revascularizable. 3. Severe LV impairment medical management per cardiology; continue aspirin,plavix,lisinopril,imdur, metoprolol and lipitor. cardiology following. -ischemic cardiomyopathy continue lasix- consulted for AICD placement. -diabetes mellitus- metformin on hold- accu-check with SSI. -DVT prophylaxis with SCD's Discharge Planning when cleared by cardiology. Dian Murcia MD Nov 20, 2016 08:27
[2016-11-20] MEDS: LISINOPRIL 20 MG TAB PO SCH (08:31)
[2016-11-20] MEDS: FUROSEMIDE 40 MG TAB PO SCH (08:31)
[2016-11-20] MEDS: ISOSORBIDE MONONITRATE 60 MG TAB PO SCH (08:31)
[2016-11-20] MEDS: PARoxetine HCL 20 MG TAB PO SCH (08:32)
[2016-11-20] MEDS: ASPIRIN 325 MG TAB PO SCH (08:32)
[2016-11-20] MEDS: POTASSIUM CHLORIDE 20 MEQ CONTROLLED RELEASE TAB PO SCH (08:32)
[2016-11-20] MEDS: CLOPIDOGREL 75 MG TAB PO SCH (08:33)
[2016-11-20] MEDS ORDERED: MISC INFORMATION XX ONE (09:00)
[2016-11-20] MEDS: ATORVASTATIN 80 MG TAB PO SCH (21:29)
[2016-11-21] VITALS (29 sets, daily range): BP systolic 119–137; BP diastolic 74–88; PULSE 50–103; RESP 16–18; TEMP 97.5–98.2; O2SAT 95–99
[2016-11-21] MEDS ORDERED: SODIUM CHLORID 0.9% 500 ML IV PRN (03:45)
[2016-11-21] MEDS ORDERED: LACTATED RINGER'S 1000 ML IV PRN (03:45)
[2016-11-21] MEDS ORDERED: CHLORHEXIDINE GLUCONATE 2 % 1 PACK (2 CLOTHS) TOPICAL PRN (03:45)
[2016-11-21] MEDS ORDERED: POVIDONE IODINE 5% (ANTISEPSIS KIT) 4 APPLICATIONS EACH NARE PRN (03:45)
[2016-11-21] MEDS: METOPROLOL TARTRATE 25 MG TAB PO SCH ×4 (06:00→18:24)
[2016-11-21] MEDS: INSULIN ASPART SUPPLEMENTAL SCALE SQ SCH ×4 (06:10→21:00)
[2016-11-21] MEDS: ISOSORBIDE MONONITRATE 60 MG TAB PO SCH (08:55)
[2016-11-21] MEDS: PARoxetine HCL 20 MG TAB PO SCH (08:55)
[2016-11-21] MEDS: POTASSIUM CHLORIDE 20 MEQ CONTROLLED RELEASE TAB PO SCH (08:55)
[2016-11-21] MEDS: LISINOPRIL 20 MG TAB PO SCH (08:55)
[2016-11-21] MEDS: FUROSEMIDE 40 MG TAB PO SCH (08:55)
[2016-11-21] MEDS: ASPIRIN 325 MG TAB PO SCH (08:55)
[2016-11-21] MEDS: CLOPIDOGREL 75 MG TAB PO SCH (08:55)
--- NOTE | 2016-11-21 09:37 | HHI.PR ---
Subjective Remarks resting comfortably with no distress. denies chest pain or sob. awaiting AICD placement. Objective Vitals Vital Signs Date Time Temp Pulse Resp B/P Pulse Ox O2 Delivery O2 Flow Rate FiO2 11/21/16 08:25 99 21 11/21/16 08:00 98.2 54 18 123/77 97 11/21/16 06:00 50 11/21/16 05:00 55 11/21/16 04:00 55 11/21/16 03:00 89 11/21/16 03:00 98.0 56 16 119/74 95 11/21/16 02:00 54 11/21/16 01:00 54 11/21/16 00:00 54 11/20/16 23:00 53 11/20/16 23:00 98.3 62 16 106/69 97 11/20/16 22:00 54 11/20/16 21:00 54 11/20/16 20:00 60 11/20/16 19:51 98 21 11/20/16 19:00 59 11/20/16 19:00 98.5 65 16 132/84 97 11/20/16 18:01 66 11/20/16 17:08 71 11/20/16 16:06 51 11/20/16 15:00 97.7 53 18 121/76 98 11/20/16 15:00 56 11/20/16 14:00 62 11/20/16 13:07 70 11/20/16 12:12 56 11/20/16 11:05 98.0 55 18 130/80 98 11/20/16 11:03 55 11/20/16 10:09 58 11/20/16 09:46 55 I/O 11/20/16 11/20/16 11/20/16 11/21/16 11/21/16 11/21/16 07:00 15:00 23:00 07:00 15:00 23:00 Intake Total 0 ml 720 ml 240 ml Balance 0 ml 720 ml 240 ml Intake Oral 720 ml 240 ml IV Total 0 ml # Voids 4 2 # Bowel Movements 1 0 Result Diagram: 11/18/16181911/18/161819 Imaging Last Impressions Chest X-Ray 11/18/16 175 Signed Impressions: Service Date/Time: Friday, November 18, 2016 18:06 - CONCLUSION: No acute disease. Julio A. Ravi, MD Objective Remarks GENERAL: This is a well-nourished, well-developed patient, in no apparent distress. CARDIOVASCULAR: Regular rate and regular rhythm without murmurs, gallops, or rubs. RESPIRATORY: Clear to auscultation. Breath sounds equal bilaterally. No wheezes , rales, or rhonchi. GASTROINTESTINAL: Abdomen soft, non-tender, nondistended. Normal, active bowel sounds MUSCULOSKELETAL: Extremities without clubbing, cyanosis, or edema. NEURO: Alert & Oriented x4 to person, place, time, situation. Moves all ext x4 Procedures cardiac catheterization Medications and IVs Current Medications Sodium Chloride (NS Flush) 2 ml UNSCH PRN IV FLUSH FLUSH AFTER USING IV ACCESS Last administered on 11/20/16 08:32; Start 11/18/16 at 19:45 Nitroglycerin (Nitrostat Sl) 0.4 mg Q5M PRN SL SEE DOSE INSTRUCTIONS; Start at 23:45 Aspirin (Aspirin) 325 mg DAILY PO Last administered on 11/21/16 08:55; Start 11/19/16 at 09:00 Atorvastatin Calcium (Lipitor) 80 mg HS PO Last administered on 11/20/16 21:29 ; Start 11/19/16 at 21:00 Clopidogrel Bisulfate (Plavix) 75 mg DAILY PO Last administered on 11/21/16 08 :55; Start 11/19/16 at 09:00 Isosorbide Mononitrate (Imdur) 60 mg DAILY PO Last administered on 11/21/16 08 :55; Start 11/19/16 at 09:00 Lisinopril (Prinivil) 5 mg DAILY PO Last administered on 11/19/16 09:00; Start 11/19/16 at 09:00; Stop 11/19/16 at 22:40; Status DC Metoprolol Tartrate (Lopressor) 12.5 mg Q12HR PO Last administered on 21:00; Start 11/19/16 at 09:00; Stop 11/19/16 at 22:40; Status DC Paroxetine HCl (Paxil) 40 mg DAILY PO Last administered on 11/21/16 08:55; Start 11/19/16 at 09:00 Miscellaneous 1 ea 1 ea UNSCH PRN OTHER SEE LABEL COMMENTS; Start 11/19/16 at 08:00 Sodium Chloride 1,000 ml @ 100 mls/hr Q10H IV ; Start 11/19/16 at 09:00; Stop 11/19/16 at 18:59; Status DC Heparin Sodium/ Sodium Chloride (Heparin-NS/Pf Inj) 500 ml @ As Directed STK- MED ONCE .ROUTE ; Start 11/19/16 at 08:53; Stop 11/19/16 at 08:54; Status DC Fentanyl Citrate (fentaNYL INJ) 100 mcg STK-MED ONCE .ROUTE Last administered on 11/19/16 09:02; Start 11/19/16 at 08:54; Stop 11/19/16 at 08:55; Status DC Miscellaneous Information 1 ONCE ONCE XX Last administered on 11/20/16 09:00 ; Start 11/20/16 at 09:00; Stop 11/20/16 at 09:01; Status DC Furosemide (Lasix) 40 mg DAILY PO Last administered on 11/21/16 08:55; Start 11/19/16 at 10:00 Potassium Chloride (KCl) 20 meq DAILY PO Last administered on 11/21/16 08:55; Start 11/19/16 at 10:15 Dextrose (D50w (Vial) Inj) 25 ml UNSCH PRN IV PUSH HYPOGLYCEMIA-SEE COMMENTS; Start 11/19/16 at 12:00 Glucagon (Glucagon Inj) 1 mg UNSCH PRN OTHER HYPOGLYCEMIA-SEE COMMENTS; Start 11/19/16 at 12:00 Insulin Aspart (NovoLOG SUPPLEMENTAL SCALE) 1 ACHS SLIDING SCALE SQ Last administered on 11/20/16 21:30; Start 11/19/16 at 16:00 Lisinopril (Prinivil) 20 mg DAILY PO Last administered on 11/21/16 08:55; Start 11/20/16 at 09:00 Metoprolol Tartrate (Lopressor) 25 mg Q6HR NEB PO ; Start 11/20/16 at 04:00; Stop 11/20/16 at 04:57; Status DC Metoprolol Tartrate 25 mg 25 mg Q6HR PO ; Start 11/20/16 at 06:00 Lactated Ringer's 1,000 ml @ 30 mls/hr Q24H PRN IV SEE LABEL COMMENTS; Start at 03:45; Stop 11/24/16 at 03:44 Sodium Chloride (NS 500 ml Inj) 500 ml @ 30 mls/hr [id number] PRN IV SEE LABEL COMMENTS; Start 11/21/16 at 03:45; Stop 11/24/16 at 03:44 Povidone Iodine (Betadine 5% Antisepsis Kit) 1 applic CERTIFIED PROFESSIONAL ERGONOMIST PRN EACH NARE SEE LABEL COMMENTS; Start 11/21/16 at 03:45; Stop 11/24/16 at 03:44 Chlorhexidine Gluconate (Chlorhexidine 2% Cloth) 3 pack CERTIFIED PROFESSIONAL ERGONOMIST PRN TOPICAL SEE LABEL COMMENTS; Start 11/21/16 at 03:45; Stop 11/24/16 at 03:44 A/P Assessment and Plan A/P - NSTEMI s/p cardiac cath with: 1. Patent proximal RCA and LAD stents. 2. Severe diffuse distal disease that is not revascularizable. 3. Severe LV impairment medical management per cardiology; continue aspirin,plavix,lisinopril,imdur, metoprolol and lipitor. evaluated by cardiology. -ischemic cardiomyopathy continue lasix- AICD placement today. -diabetes mellitus- metformin on hold- accu-check with SSI. -DVT prophylaxis with SCD's Discharge Planning when cleared by cardiology. Dian Murcia MD Nov 21, 2016 09:37
[2016-11-21] MEDS ORDERED: VANCOMYCIN HCL 1000 MG VIAL ONE (13:49)
[2016-11-21] MEDS ORDERED: LIDOCAINE HCL 2% 50 ML VIAL ONE (13:49)
[2016-11-21] MEDS ORDERED: VANCOMYCIN 500 MG VIAL ONE (13:49)
[2016-11-21] MEDS ORDERED: ceFAZolin INJ 1,000 MG VIAL ONE (13:50)
[2016-11-21] MEDS ORDERED: MIDAZOLAM HCL 5 MG/5 ML VIAL ONE (13:57)
[2016-11-21] MEDS ORDERED: ONDANSETRON HCL 4 MG/2 ML VIAL IV PRN (18:45)
--- NOTE | 2016-11-21 18:52 | PD.CARD ---
SINGLE CHAMBER DEFIB IMPLANT PROCEDURE DATE: Nov 21, 2016 NYHA Classification: Class II (Mild) Prevention: Primary Single Chamber Defib Implant PROCEDURE: Single chamber defibrillator implantation and device testing. INDICATIONS: Mr. Lewis is a 56 -year-old male with hx of ischemic cardiomyopathy, congestive heart failure, ejection fraction 20% who undergo defibrillator implantation for sudden primary prevention. The risks, the nature and the benefit of the procedure are clearly stated to him . Risks include pneumothorax, cardiac perforation, stroke and even . He understood and agreed to proceed. PROCEDURE: After written, informed consent was obtained, the patient was brought to the EP Lab where he was prepped and draped in the sterile fashion. Conscious sedation was initiated and maintained throughout the procedure by anesthesiologist. Once sedation was verified, the left infraclavicular area was anesthetized with 2% Xylocaine. Using modified Seldinger technique, the left subclavian vein was cannulated on one occasion and one guide wire was advanced. Then, using #11 blade scalpel, a 3-cm incision was made two fingerbreadths below left clavicle. This incision was then taken down to the deep fascial layer using Bovie cautery and blunt dissection. Into the inferomedial direction, a device pocket was dissected, then the wire was dissected into the pocket. A 2-0 Vicryl suture was placed around the wires to prevent bleeding. At this point, over the wire, the 9- Mauritian dilator and introducer was advanced. As dilator and wire were removed, an active fixation right ventricular pacing, sensing and defibrillatory lead was advanced. After adequate pacing and sensing thresholds were obtained, the lead was secured in the pocket with #2 Ethibond suture. At that point, the pocket was copiously irrigated with antibiotic solution. The leads were connected to the generator and placed into the pocket. Device testing was not performed due to severe CAD. I did proceed with wound closure. The deep fascial layer was approximated with 2-0 Vicryl suture in a continuous fashion. The subcutaneous layer was approximated with 2-0 Vicryl suture in a continuous fashion. The subcuticular layer was approximated with 2-0 Vicryl suture in a continuous fashion. Dermabond adhesive was applied to the wound, followed by a sterile pressure dressing. There was no complication. The patient tolerated procedure. Blood loss minimal. 1. Implanted Hardware: The implanted defibrillator generator is a [employer], model number D020, serial number [id number]. The right ventricular pacing, sensing and defibrillatory lead is a [employer] model number 0296 , serial number [id number]. 2. Thresholds: The right ventricular pacing threshold in the bipolar mode was 1.0volts at 0.4 milliseconds, lead impedance 650 ohms and R-wave at 23.4 mV. 3. Settings: The device set in VVI 40 defibrillatory portion for two zones, one zone for ventricular tachycardia between 160 and 240 beats per minute. Initial therapy consists of one burst of ATP, one ramp, 81%, 10 pulse, 10 millisecond decremental, followed by 21, then 31 and all subsequent shocks at 41 joules defibrillatory shock, the second zone for ventricular fibrillation above 240beats per minute, first therapy at 31 and all subsequent shocks at 41 joules defibrillatory shock. CONCLUSIONS: Successful defibrillator implantation. COMMENT AND RECOMMENDATIONS: The patient will be transferred to the telemetry unit, will be observed and when stable can be discharged home. Hugo Don MD Nov 21, 2016 18:52
--- NOTE | 2016-11-21 20:19 | RADRPT ---
EXAM DATE/TIME: 11/21/2016 19:23 [facility] COMPARISON: CHEST SINGLE AP, November 18, 2016, 18:06. INDICATIONS : Post pacemaker placement. MEDICAL HISTORY : None. SURGICAL HISTORY : None. ENCOUNTER: Initial ACUITY: 1 day PAIN SCORE: 0/10 LOCATION: Bilateral chest FINDINGS: The lungs are clear without infiltrate, nodule, or mass. There is no appreciable pleural effusion fo r technique. Heart and mediastinum are unremarkable. Left subclavian transvenous pacer wire is prese nt with tip in the right ventricle. CONCLUSION: No acute cardiopulmonary disease. Zuleyka Dwyer MD on November 21, 2016 at 20:16 Board Certified Radiologist. This report was verified electronically.
[2016-11-21] MEDS: ATORVASTATIN 80 MG TAB PO SCH (20:40)
[2016-11-21] MEDS: ceFAZolin 2 GM PREMIX 50 ML IV SCH (20:40)
[2016-11-21] MEDS ORDERED: ACETAMINOPHEN/HYDROcodone 325 MG/10 MG TAB PO PRN (21:30)
[2016-11-21] MEDS: ACETAMINOPHEN/HYDROcodone 325 MG/10 MG TAB PO PRN (21:44)
[2016-11-22] VITALS (19 sets, daily range): BP systolic 97–135; BP diastolic 70–98; PULSE 55–71; RESP 16–18; TEMP 97.9–98.2; O2SAT 96–99
[2016-11-22] MEDS: ACETAMINOPHEN/HYDROcodone 325 MG/10 MG TAB PO PRN (04:22)
[2016-11-22] MEDS: ceFAZolin 2 GM PREMIX 50 ML IV SCH (04:22)
--- NOTE | 2016-11-22 06:00 | EKG ---
Date Performed: 11/21/2016 Time Performed: 21:48:32 PTAGE: 56 years EKG: Sinus rhythm Inferior infarct - age undetermined Possible lateral infarct - age undetermined Abnormal ECG NO SIGN IFICANT CHANGE FROM PRIOR ELECTROCARDIOGRAM. PREVIOUS TRACING : 11/21/2016 09.51 DOCTOR: Ramsey Alvarado Interpretating Date/Time 11/22/2016 05:59:22
[2016-11-22] MEDS: METOPROLOL TARTRATE 25 MG TAB PO SCH ×3 (06:55→12:00)
[2016-11-22] MEDS: INSULIN ASPART SUPPLEMENTAL SCALE SQ SCH ×2 (06:55→11:00)
--- NOTE | 2016-11-22 07:15 | PD.CARD.PN ---
Subjective Subjective Remarks No complaints s/p ICD implant Objective Medications Current Medications Medications (Trade) Dose Ordered Sig/Dima Route Start Time Stop Time Status Last Admin (NS Flush) 2 ml UNSCH PRN IV FLUSH 11/18/16 19:45 11/20/16 08:32 (Nitrostat Sl) 0.4 mg Q5M PRN SL 11/18/16 23:45 (Aspirin) 325 mg DAILY PO 11/19/16 09:00 11/21/16 08:55 (Lipitor) 80 mg HS PO 11/19/16 21:00 11/21/16 20:40 (Plavix) 75 mg DAILY PO 11/19/16 09:00 11/21/16 08:55 (Imdur) 60 mg DAILY PO 11/19/16 09:00 11/21/16 08:55 (Paxil) 40 mg DAILY PO 11/19/16 09:00 11/21/16 08:55 (Pill Splitter) 1 ea UNSCH PRN OTHER 11/19/16 08:00 (Lasix) 40 mg DAILY PO 11/19/16 10:00 11/21/16 08:55 (KCl) 20 meq DAILY PO 11/19/16 10:15 11/21/16 08:55 (D50w (Vial) Inj) 25 ml UNSCH PRN IV PUSH 11/19/16 12:00 (Glucagon Inj) 1 mg UNSCH PRN OTHER 11/19/16 12:00 (Prinivil) 20 mg DAILY PO 11/20/16 09:00 11/21/16 08:55 Metoprolol Tartrate 25 mg 25 mg Q6HR PO 11/20/16 06:00 11/22/16 06:55 Lactated Ringer's 1,000 ml @ 30 mls/hr Q24H PRN IV 11/21/16 03:45 11/24/16 03:44 Sodium Chloride 500 ml @ 30 mls/hr [id number] PRN IV 11/21/16 03:45 11/24/16 03:44 (Ancef 2 Gm Premix) 50 ml @ 100 mls/hr Q8H IV 11/21/16 19:00 11/22/16 11:29 11/22/16 04:22 (Zofran Inj) 4 mg Q4H PRN IV 11/21/16 18:45 ([place] 10-325 Mg) 1 tab Q4H PRN PO 11/21/16 21:00 11/22/16 04:22 Vital Signs / I&O Vital Signs Date Time Temp Pulse Resp B/P Pulse Ox O2 Delivery O2 Flow Rate FiO2 11/22/16 04:27 98.2 71 16 128/81 98 11/22/16 02:00 58 11/22/16 01:48 98.2 56 16 135/81 96 11/22/16 01:00 56 11/22/16 00:00 56 11/21/16 23:00 58 11/21/16 22:00 62 11/21/16 21:00 62 11/21/16 20:40 98.0 59 16 137/81 98 11/21/16 20:26 99 11/21/16 20:00 60 11/21/16 19:00 64 11/21/16 18:00 66 11/21/16 17:00 64 11/21/16 16:00 66 11/21/16 15:46 58 11/21/16 15:37 97.9 61 18 121/83 98 11/21/16 13:00 64 11/21/16 12:00 61 11/21/16 11:35 97.5 58 18 125/88 96 11/21/16 11:00 62 11/21/16 10:00 70 11/21/16 09:00 70 11/21/16 08:25 99 21 11/21/16 08:00 58 11/21/16 08:00 98.2 54 18 123/77 97 I/O 11/21/16 11/21/16 11/21/16 11/22/16 11/22/16 11/22/16 07:00 15:00 23:00 07:00 15:00 23:00 Intake Total 240 ml 480 ml 450 ml Balance 240 ml 480 ml 450 ml Intake Oral 240 ml 480 ml 450 ml # Voids 2 2 3 # Bowel Movements 0 2 Physical Exam GENERAL: Well-nourished, well-developed patient. SKIN: Warm and dry. LCW well approximated without erythema or drainage. HEAD: Normocephalic. EYES: No scleral icterus. No injection or drainage. NECK: Supple, trachea midline. No JVD or lymphadenopathy. CARDIOVASCULAR: Regular rate and rhythm without murmurs, gallops, or rubs. RESPIRATORY: Breath sounds equal bilaterally. No accessory muscle use. GASTROINTESTINAL: Abdomen soft, non-tender, nondistended. EXTREMITIES: No cyanosis, or edema. NEUROLOGICAL: Awake, alert, and oriented x 3. Non-focal. Imaging Last Impressions Chest X-Ray 11/21/16 0000 Signed Impressions: Service Date/Time: October 19:23 - CONCLUSION: No acute cardiopulmonary disease. Zuleyka Dwyer MD Assessment and Plan Problem List: (1) Cardiomyopathy Assessment and Plan: EF 20%, optimized medications, heart cath showed patent stents with severe diffuse disease, not revascularizable. (2) S/P ICD (internal cardiac defibrillator) procedure Assessment and Plan: Pending interrogation, CXR negative. Can be discharged home from EP standpoint if interrogation ok, when cleared by managing team. F/ U with Dr. Don in 2 weeks, per my d/w Dr. Don. Problem Qualifiers (1) Cardiomyopathy: Qualified Code: I25.5 - Ischemic cardiomyopathy Kori Kenny Nov 22, 2016 07:15
[2016-11-22] MEDS: PARoxetine HCL 20 MG TAB PO SCH (08:29)
[2016-11-22] MEDS: ISOSORBIDE MONONITRATE 60 MG TAB PO SCH (08:29)
[2016-11-22] MEDS: FUROSEMIDE 40 MG TAB PO SCH (08:30)
[2016-11-22] MEDS: LISINOPRIL 20 MG TAB PO SCH (08:30)
[2016-11-22] MEDS: CLOPIDOGREL 75 MG TAB PO SCH (08:30)
[2016-11-22] MEDS: ASPIRIN 325 MG TAB PO SCH (08:30)
[2016-11-22] MEDS: POTASSIUM CHLORIDE 20 MEQ CONTROLLED RELEASE TAB PO SCH (08:30)
--- NOTE | 2016-11-22 10:08 | EKG ---
Date Performed: 11/22/2016 Time Performed: 06:22:56 PTAGE: 56 years EKG: Sinus bradycardia Prolonged QT interval Inferior infarct - age undetermined Lateral ST-T ch anges are nonspecific Abnormal ECG NO SIGNIFICANT CHANGE FROM PRIOR ELECTROCARDIOGRAM. PREVIOUS TRACING : 11/21/2016 21.48 DOCTOR: Ramsey Alvarado Interpretating Date/Time 11/22/2016 10:07:16
--- NOTE | 2016-11-22 11:07 | HHI.PR ---
Subjective Remarks resting comfortably with no distress. no chest pain or sob. wants to go home today. no new complaints. Objective Vitals Vital Signs Date Time Temp Pulse Resp B/P Pulse Ox O2 Delivery O2 Flow Rate FiO2 11/22/16 10:01 57 11/22/16 09:00 58 11/22/16 08:15 98.2 64 18 127/98 97 11/22/16 08:03 99 21 11/22/16 08:00 62 11/22/16 07:00 60 11/22/16 06:00 56 11/22/16 05:00 55 11/22/16 04:27 98.2 71 16 128/81 98 11/22/16 04:00 56 11/22/16 03:00 56 11/22/16 02:00 58 11/22/16 01:48 98.2 56 16 135/81 96 11/22/16 01:00 56 11/22/16 00:00 56 11/21/16 23:00 58 11/21/16 22:00 62 11/21/16 21:00 62 11/21/16 20:40 98.0 59 16 137/81 98 11/21/16 20:26 99 11/21/16 20:00 60 11/21/16 19:00 64 11/21/16 18:00 66 11/21/16 17:00 64 11/21/16 16:00 66 11/21/16 15:46 58 11/21/16 15:37 97.9 61 18 121/83 98 11/21/16 13:00 64 11/21/16 12:00 61 11/21/16 11:35 97.5 58 18 125/88 96 I/O 11/21/16 11/21/16 11/21/16 11/22/16 11/22/16 11/22/16 07:00 15:00 23:00 07:00 15:00 23:00 Intake Total 240 ml 480 ml 450 ml Balance 240 ml 480 ml 450 ml Intake Oral 240 ml 480 ml 450 ml # Voids 2 2 3 # Bowel Movements 0 2 Result Diagram: 11/18/16181911/18/16 182 Imaging Last Impressions Chest X-Ray 11/21/16 0000 Signed Impressions: Service Date/Time: Thursday, November 21, 2016 19:23 - CONCLUSION: No acute cardiopulmonary disease. Zuleyka Dwyer MD Objective Remarks GENERAL: This is a well-nourished, well-developed patient, in no apparent distress. CARDIOVASCULAR: Regular rate and regular rhythm without murmurs, gallops, or rubs. RESPIRATORY: Clear to auscultation. Breath sounds equal bilaterally. No wheezes , rales, or rhonchi. GASTROINTESTINAL: Abdomen soft, non-tender, nondistended. Normal, active bowel sounds MUSCULOSKELETAL: Extremities without clubbing, cyanosis, or edema. NEURO: Alert & Oriented x4 to person, place, time, situation. Moves all ext x4 Procedures cardiac catheterization Medications and IVs Current Medications Sodium Chloride (NS Flush) 2 ml UNSCH PRN IV FLUSH FLUSH AFTER USING IV ACCESS Last administered on 11/20/16 08:32; Start 11/18/16 at 19:45 Nitroglycerin (Nitrostat Sl) 0.4 mg Q5M PRN SL SEE DOSE INSTRUCTIONS; Start at 23:45 Aspirin (Aspirin) 325 mg DAILY PO Last administered on 11/22/16 08:30; Start 11/19/16 at 09:00 Atorvastatin Calcium (Lipitor) 80 mg HS PO Last administered on 11/21/16 20:40 ; Start 11/19/16 at 21:00 Clopidogrel Bisulfate (Plavix) 75 mg DAILY PO Last administered on 11/22/16 08 :30; Start 11/19/16 at 09:00 Isosorbide Mononitrate (Imdur) 60 mg DAILY PO Last administered on 11/22/16 08 :29; Start 11/19/16 at 09:00 Lisinopril (Prinivil) 5 mg DAILY PO Last administered on 11/19/16 09:00; Start 11/19/16 at 09:00; Stop 11/19/16 at 22:40; Status DC Metoprolol Tartrate (Lopressor) 12.5 mg Q12HR PO Last administered on 21:00; Start 11/19/16 at 09:00; Stop 11/19/16 at 22:40; Status DC Paroxetine HCl (Paxil) 40 mg DAILY PO Last administered on 11/22/16 08:29; Start 11/19/16 at 09:00 Miscellaneous 1 ea 1 ea UNSCH PRN OTHER SEE LABEL COMMENTS; Start 11/19/16 at 08:00 Sodium Chloride 1,000 ml @ 100 mls/hr Q10H IV ; Start 11/19/16 at 09:00; Stop 11/19/16 at 18:59; Status DC Heparin Sodium/ Sodium Chloride (Heparin-NS/Pf Inj) 500 ml @ As Directed STK- MED ONCE .ROUTE ; Start 11/19/16 at 08:53; Stop 11/19/16 at 08:54; Status DC Fentanyl Citrate (fentaNYL INJ) 100 mcg STK-MED ONCE .ROUTE Last administered on 11/19/16 09:02; Start 11/19/16 at 08:54; Stop 11/19/16 at 08:55; Status DC Miscellaneous Information 1 ONCE ONCE XX Last administered on 11/20/16 09:00 ; Start 11/20/16 at 09:00; Stop 11/20/16 at 09:01; Status DC Furosemide (Lasix) 40 mg DAILY PO Last administered on 11/22/16 08:30; Start 11/19/16 at 10:00 Potassium Chloride (KCl) 20 meq DAILY PO Last administered on 11/22/16 08:30; Start 11/19/16 at 10:15 Dextrose (D50w (Vial) Inj) 25 ml UNSCH PRN IV PUSH HYPOGLYCEMIA-SEE COMMENTS; Start 11/19/16 at 12:00 Glucagon (Glucagon Inj) 1 mg UNSCH PRN OTHER HYPOGLYCEMIA-SEE COMMENTS; Start 11/19/16 at 12:00 Insulin Aspart (NovoLOG SUPPLEMENTAL SCALE) 1 ACHS SLIDING SCALE SQ Last administered on 11/22/16 06:55; Start 11/19/16 at 16:00 Lisinopril (Prinivil) 20 mg DAILY PO Last administered on 11/22/16 08:30; Start 11/20/16 at 09:00 Metoprolol Tartrate (Lopressor) 25 mg Q6HR NEB PO ; Start 11/20/16 at 04:00; Stop 11/20/16 at 04:57; Status DC Metoprolol Tartrate 25 mg 25 mg Q6HR PO Last administered on 11/22/16 06:55; Start 11/20/16 at 06:00 Lactated Ringer's 1,000 ml @ 30 mls/hr Q24H PRN IV SEE LABEL COMMENTS; Start at 03:45; Stop 11/24/16 at 03:44 Sodium Chloride (NS 500 ml Inj) 500 ml @ 30 mls/hr [id number] PRN IV SEE LABEL COMMENTS; Start 11/21/16 at 03:45; Stop 11/24/16 at 03:44 Povidone Iodine (Betadine 5% Antisepsis Kit) 1 applic LIGHT OIL OPERATOR PRN EACH NARE SEE LABEL COMMENTS; Start 11/21/16 at 03:45; Stop 11/24/16 at 03:44 Chlorhexidine Gluconate (Chlorhexidine 2% Cloth) 3 pack LIGHT OIL OPERATOR PRN TOPICAL SEE LABEL COMMENTS; Start 11/21/16 at 03:45; Stop 11/24/16 at 03:44 Vancomycin HCl (Vancomycin Inj) 500 mg STK-MED ONCE .ROUTE Last administered on 11/21/16 13:49; Start 11/21/16 at 13:49; Stop 11/21/16 at 13:50; Status DC Vancomycin HCl (Vancomycin Inj) 1,000 mg STK-MED ONCE .ROUTE Last administered on 11/21/16 14:05; Start 11/21/16 at 13:49; Stop 11/21/16 at 13:50; Status DC Lidocaine HCl (Xylocaine 2% Inj) 50 ml STK-MED ONCE .ROUTE Last administered on 11/21/16 13:49; Start 11/21/16 at 13:49; Stop 11/21/16 at 13:50; Status DC Cefazolin Sodium (Ancef Inj) 2,000 mg STK-MED ONCE .ROUTE Last administered on 11/21/16 14:05; Start 11/21/16 at 13:50; Stop 11/21/16 at 13:51; Status DC Fentanyl Citrate (fentaNYL INJ) 100 mcg STK-MED ONCE .ROUTE ; Start 11/21/16 at 13:57; Stop 11/21/16 at 13:58; Status DC Midazolam HCl 5 mg 5 mg STK-MED ONCE .ROUTE ; Start 11/21/16 at 13:57; Stop at 13:58; Status DC Cefazolin Sodium/ Dextrose (Ancef 2 Gm Premix) 50 ml @ 100 mls/hr Q8H IV Last administered on 11/22/16 04:22; Start 11/21/16 at 19:00; Stop 11/22/16 at 11:29 Ondansetron HCl (Zofran Inj) 4 mg Q4H PRN IV NAUSEA; Start 11/21/16 at 18:45 Acetaminophen/ Hydrocodone Bitart ([place] 10-325 Mg) 1 tab Q4H PRN PO PAIN 1-10 Last administered on 11/22/16 04:22; Start 11/21/16 at 21:00 Acetaminophen/ Hydrocodone Bitart ([place] 10-325 Mg) 1 tab Q4H PRN PO PAIN SCALE 1 TO 10; Start 11/21/16 at 21:30; Stop 11/21/16 at 21:52; Status DC Cephalexin Monohydrate (Keflex) 500 mg Q8H PO ; Start 11/22/16 at 20:00; Stop at 19:59 A/P Assessment and Plan A/P - NSTEMI s/p cardiac cath with: 1. Patent proximal RCA and LAD stents. 2. Severe diffuse distal disease that is not revascularizable. 3. Severe LV impairment medical management per cardiology; continue aspirin,plavix,lisinopril,imdur, metoprolol and lipitor. evaluated by cardiology. -ischemic cardiomyopathy continue lasix- s/p AICD placement. -diabetes mellitus- resume metformin upon discharge. -DVT prophylaxis with SCD's Discharge Planning dc home today. see med list. f/u; pcp and cardiology. d/w the patient. Dian Murcia MD Nov 22, 2016 11:07
[2016-11-22] MEDS ORDERED: NITR0.4S SL (11:11)
[2016-11-22] MEDS ORDERED: FURO40TA PO (11:11)
[2016-11-22] MEDS ORDERED: LISI-515 PO (11:11)
[2016-11-22] MEDS ORDERED: METO25TA3 PO (11:11)
[2016-11-22] MEDS ORDERED: CEPH500C PO (11:13)
[2016-11-22] MEDS ORDERED: POTA-163 PO (11:13)
--- NOTE | 2016-11-22 11:14 | HHI.DCPOC ---
Discharge Care Plan Diagnosis: (1) Cardiomyopathy Your Health Problems Are: Chest Pain Goals to Promote Your Health * To prevent worsening of your condition and complications * To maintain your health at the optimal level Directions to Meet Your Goals Take your medications as prescribed Follow your dietary instruction Follow activity as directed Keep your appointments as scheduled Take your immunizations and boosters as scheduled If your symptoms worsen call your PCP, if no PCP go to Urgent Care Center or Emergency Room Smoking is Dangerous to Your Health. Avoid second hand smoke Call the 24-hour hour crisis hotline for domestic abuse at Dian Murcia MD Nov 22, 2016 11:14
--- NOTE | 2016-11-22 11:15 | HHI.DS ---
Discharge Summary Admission Date Nov 21, 2016 at 16:38 Discharge Date: Nov 22, 2016 Admitting Diagnosis angina (1) Cardiomyopathy ICD Code: I42.9 Diagnosis: Principal (2) Chest pain ICD Code: R07.9 Diagnosis: Principal Procedures cardiac catheterization Brief History - From Admission This is a 56-year-old male with history of CAD that presents to ED via E VAC to evaluate chest discomfort. He estimates that he has had approximately 13 or 14 stents. He was a STEMI alert September of this year and a non-STEMI alert March last year. No stenting during the STEMI. He states that he has had a burning discomfort that radiated from the left side his chest into the left jaw and down his left arm. He called 911 immediately . CBC/BMP: 11/18/16 1820 11/18/16 1820 Imaging Last Impressions Chest X-Ray 11/21/16 0000 Signed Impressions: Service Date/Time: October 19:23 - CONCLUSION: No acute cardiopulmonary disease. Zuleyka Dwyer MD PE at Discharge GENERAL: This is a well-nourished, well-developed patient, in no apparent distress. CARDIOVASCULAR: Regular rate and regular rhythm without murmurs, gallops, or rubs. RESPIRATORY: Clear to auscultation. Breath sounds equal bilaterally. No wheezes , rales, or rhonchi. GASTROINTESTINAL: Abdomen soft, non-tender, nondistended. Normal, active bowel sounds MUSCULOSKELETAL: Extremities without clubbing, cyanosis, or edema. NEURO: Alert & Oriented x4 to person, place, time, situation. Moves all ext x4 Hospital Course - NSTEMI s/p cardiac cath with: 1. Patent proximal RCA and LAD stents. 2. Severe diffuse distal disease that is not revascularizable. 3. Severe LV impairment medical management per cardiology; continue aspirin,plavix,lisinopril,imdur, metoprolol and lipitor. evaluated by cardiology. -ischemic cardiomyopathy continue lasix- s/p AICD placement. -diabetes mellitus- resume metformin upon discharge. -DVT prophylaxis with SCD's Pt Condition on Discharge: Good Discharge Disposition: Discharge Home Discharge Time: <= 30 minutes Discharge Instructions DIET: Follow Instructions for: Heart Healthy Diet, Diabetic Diet Activities you can perform: Regular-No Restrictions Follow up Referrals: Cardiology PCP Follow-up New Medications: Potassium Chloride ER (Potassium Chloride ER) 20 Meq Tab 20 MEQ PO DAILY Electrolyte Replacement #30 Ref 0 TAB Cephalexin (Cephalexin) 500 Mg Cap 500 MG PO Q8H antibiotic Days 4 Ref 0 CAP Furosemide (Furosemide) 40 Mg Tab 40 MG PO DAILY chf Days 30 Ref 0 TAB Lisinopril (Lisinopril) 20 Mg Tab 20 MG PO DAILY chf Days 30 Ref 0 TAB Metoprolol Tartrate (Metoprolol Tartrate) 25 Mg Tab 25 MG PO Q6HR chf Days 30 Ref 0 TAB Nitroglycerin SL (Nitrostat SL) 0.4 Mg Subl 0.4 MG SL Q5M 0.4 mg sublingual every 5 min as needed for chest pain upto three doses. PRN chest pain #20 Ref 0 TAB Continued Medications: Aspirin (Aspirin) 325 Mg Tab 325 MG PO DAILY #30 Ref 0 TAB Atorvastatin (Atorvastatin) 80 Mg Tab 80 MG PO HS Cholesterol Management #90 Ref 0 TAB Clopidogrel (Plavix) 75 Mg Tab 75 MG PO DAILY Blood Clot Prevention #90 Ref 0 TAB Isosorbide Mononitrate ER (Isosorbide Mononitrate ER) 60 Mg Tab 60 MG PO DAILY Prevent Chest Pain #90 Ref 0 TAB Metformin (Glucophage) 500 Mg Tab 500 MG PO BIDPC #180 TAB Paroxetine (Paxil) 40 Mg Tab 40 MG PO DAILY Anxiety #30 Ref 0 TAB Discontinued Medications: Lisinopril (Lisinopril) 5 Mg Tab 5 MG PO DAILY Blood Pressure Management #90 Ref 0 TAB Metoprolol Tartrate (Metoprolol Tartrate) 25 Mg Tab 12.5 MG PO Q12HR Heart #180 TAB Dian Murcia MD Nov 22, 2016 11:15
--- NOTE | 2016-11-22 11:21 | PQ ---
Physician Query Response Document PATIENT: LESLIE LEWIS : 1960 ADMIT DATE: 11/21/2016 4:38 PM DISCH DATE: RESPONDING PROVIDER #: [email or web address] QUERY TEXT: CHF Acuity and Type Congestive Heart Failure is documented in the Medical Record. Please document the type and acuity (in cludes probable or suspected) Such as: Type: -- Systolic -- Diastolic -- Combined -- Other, please specify Acuity: -- Acute -- Chronic -- Acute on chronic -- Other, please specify The patient's Clinical Indicators include: PER PROCEDURE NOTE 11/21/16: Mr. Lewis is a 56 -year-old male with hx of ischemic cardiomyopathy, congestive hear t failure, ejection fraction 20% NO BNP AVAILABLE LASIX 40 PO DAILY Query created by: Asmita Mcginnis on 11/22/2016 9:13 AM RESPONSE TEXT: Chronic systolic. Electronically signed by: iDan Murcia MD 11/22/2016 11:17 AM
[2016-11-22] MEDS ORDERED: CEPHALEXIN MONOHYDRATE 500 MG CAP PO SCH (20:00)
== END 2016-11-22 13:30 | disposition home or self-care (01) | DRG 223 ==
LOC: NEPC 17:36 → NEDA 19:38 → NEPHCDU 20:49 → HCIS 11-19 09:02 → HCIN 11-19 16:25 → OBSVTOIN 11-21 16:38
PROVIDERS: ADMIT Internal Medicine; ATTEND Internal Medicine
PROC: 4A023N7 Measurement of Cardiac Sampling and Pressure, Left Heart, Percutaneous Approach (ICD-10-PCS; 2016-11-19)
PROC: B2111ZZ Fluoroscopy of Multiple Coronary Arteries using Low Osmolar Contrast (ICD-10-PCS; 2016-11-19)
PROC: B2151ZZ Fluoroscopy of Left Heart using Low Osmolar Contrast (ICD-10-PCS; 2016-11-19)
PROC: 02HK3KZ Insertion of Defibrillator Lead into Right Ventricle, Percutaneous Approach (ICD-10-PCS; 2016-11-21)
PROC: 0JH608Z Insertion of Defibrillator Generator into Chest Subcutaneous Tissue and Fascia, Open Approach (ICD-10-PCS; principal; 2016-11-21 13:30)
DX: I21.4 Non-ST elevation (NSTEMI) myocardial infarction (principal); I11.0 Hypertensive heart disease with heart failure; I50.22 Chronic systolic (congestive) heart failure; I25.10 Atherosclerotic heart disease of native coronary artery without angina pectoris; E11.9 Type 2 diabetes mellitus without complications; E78.5 Hyperlipidemia, unspecified; I25.5 Ischemic cardiomyopathy; I25.2 Old myocardial infarction; K21.9 Gastro-esophageal reflux disease without esophagitis; F17.210 Nicotine dependence, cigarettes, uncomplicated; F41.9 Anxiety disorder, unspecified; Z79.84 Long term (current) use of oral hypoglycemic drugs; Z95.5 Presence of coronary angioplasty implant and graft
CPT/HCPCS: 33249; 71010; 80048; 80061; 82550; 82948; 83735; 84450; 84460; 84484; 85025; 85610; 85730; 93005; 93458; C1722; C1769; C1893; C1895; G0378; J0690; J1644; J1815; J2250; J3010; J3370